=== PATIENT | male | born 1935 | race Caucasian/White ===

== ENCOUNTER → 2016-07-15 | Outpatient (CLI) | payer MEDICARE, OTHER ==
--- NOTE | 2016-07-15 16:43 | REP ---
MRI LUMBAR SPINE WITHOUT CONTRAST: HISTORY: Back and bilateral hip pain. COMPARISON: 11/22/2007. Decreased signal intensity on T2-weighted images is present in the lumbar intervertebral discs. The discs are decreased in height. These findings are consistent with disc degeneration. A diffuse disc bulge is present at the L1-2 level. There is minimal compression of the thecal sac. There is hypertrophy of the posterior articulating facets. The L2 nerves exit the neural foramina without compression. A diffuse disc bulge is present at the L2-3 level. There is hypertrophy of the ligamenta flava and posterior articulating facets. These findings produce mild central canal stenosis. The L2 nerves exit the neural foramina without compression. A diffuse disc bulge is present at the L3-4 level. There is hypertrophy of the ligamenta flava and posterior articulating facets. These findings produce mild central canal stenosis. The L3 nerves exit the neural foramina without compression. A diffuse disc bulge is present at the L4-5 level. There is hypertrophy of the ligamenta flava and posterior articulating facets. These findings produce minimal central canal stenosis. The L4 nerves exit the neural foramina without compression. A diffuse disc bulge is present at the L5-S1 level. This abuts the thecal sac and S1 nerves. There is hypertrophy of the posterior articulating facets. The L5 nerves exit the neural foramina without compression. The conus medullaris is normal in appearance terminating at the level of the T12-L1 intervertebral disc. There is an old compression fracture of the L1 vertebral body with minimal height loss. Increased signal intensity on T2-weighted images is present in the endplates of the L1 through L5 vertebral bodies. This represents degenerative change. IMPRESSION: 1. Diffuse disc bulge at the L1-2 level with minimal thecal sac compression. 2. Mild central canal stenosis at the L2-3 and L3-4 levels secondary to disc bulge, ligamentous and facet hypertrophy. The canal stenosis is a new finding. 3. Minimal central canal stenosis at the L4-5 level secondary to disc bulge, ligamentous and facet hypertrophy. This is a new finding. 4. Diffuse disc bulge at the L5-S1 level. This abuts the thecal sac and S1 nerves. There is no other significant change. Signed by Rasheed Ortiz MD 07/15/2016 04:47 P
== END ==
LOC: M RAD 12:14
PROVIDERS: ATTEND Pain Medicine Interventional Pain Medicine
DX: M47.816 Spondylosis without myelopathy or radiculopathy, lumbar region (principal); M51.36 Other intervertebral disc degeneration, lumbar region; M51.26 Other intervertebral disc displacement, lumbar region

== ENCOUNTER → 2016-08-26 | Outpatient (CLI) | payer MEDICARE, OTHER ==
[2016-08-26 18:25] LABS: ALBUMIN 3.4 GM/DL (3.2-5.2); ALBUMIN/GLOBULIN RATIO 1.21 (1.00-1.93); BILIRUBIN,TOTAL 0.6 MG/DL (0.2-1.0); CALCIUM LEVEL 8.7 MG/DL (8.8-10.2); CREATININE FOR GFR 1.27 MG/DL (0.70-1.30); GLOMERULAR FILTRATION RATE 58.1 (>35); POTASSIUM SERUM 4.2 MEQ/L (3.5-5.1); TOTAL PROTEIN 6.2 GM/DL (6.4-8.2)
== END ==
LOC: M SMT 13:12
PROVIDERS: ATTEND Physician Assistant
DX: I10 Essential (primary) hypertension (principal); E78.5 Hyperlipidemia, unspecified

== ENCOUNTER → 2016-11-24 | Outpatient (CLI) | payer MEDICARE, OTHER | LOC: M SMT 15:27 | PROVIDERS: ATTEND Urology | DX: N40.0 Benign prostatic hyperplasia without lower urinary tract symptoms (principal) ==

== ENCOUNTER 2017-03-18 09:24 | Emergency (ER) | payer MEDICARE, OTHER ==
[~2017-03-18] VITALS: Ht 175.3 cm; Wt 97.7 kg
[2017-03-18] MEDS ORDERED: TRIBTAB PO (10:00)
[2017-03-18] MEDS ORDERED: CILO100T PO (10:00)
[2017-03-18] MEDS ORDERED: CLAR10CA3 PO (10:00)
[2017-03-18] MEDS ORDERED: LIDO1PAD TOP (10:00)
[2017-03-18] MEDS ORDERED: ASPI81TA85 PO (10:00)
[2017-03-18] MEDS ORDERED: DICY10CA13 (10:00)
[2017-03-18] MEDS ORDERED: VITA2000 PO (10:00)
[2017-03-18] MEDS ORDERED: CRES5TAB (10:00)
[2017-03-18] MEDS ORDERED: NS 500 ML IV ONE (10:15)
[2017-03-18] MEDS ORDERED: ONDANSETRON 4MG/2ML VIAL (J2405) IV ONE (10:15)
[2017-03-18] MEDS ORDERED: MORPHINE 2 MG/ML 1ML SYRINGE IV PRN (10:15)
[2017-03-18] MEDS ORDERED: GASTROGRAFIN SOLUTION 30ML (Q9963) As Ordered ONE (10:43)
[2017-03-18 10:57] LABS: BASO % 0.2 % (0.0-1.0); EOS % 0.4 % (0.0-3.0); LARGE UNSTAINED CELL # 0.1 K/mm3 (0.0-0.4); LARGE UNSTAINED CELL % 1.9 % (0.0-4.0); LYMPH # 0.4 K/mm3 (1.5-4.5); LYMPH % 6.6 % (24.0-44.0); MEAN CORPUSCULAR HEMOGLOBIN 32.1 pg (27.0-33.0); MEAN CORPUSCULAR HGB CONC 34.4 g/dl (32.0-36.5); MEAN CORPUSCULAR VOLUME 93.3 fl (80.0-96.0); MONO # 0.3 K/mm3 (0.0-0.8); MONO % 5.1 % (0.0-5.0); NEUTROPHILS # 5.7 K/mm3 (1.8-7.7); NEUTROPHILS % 85.8 % (36.0-66.0); PLATELET COUNT, AUTOMATED 229 k/mm3 (150-450); RED CELL DISTRIBUTION WIDTH 13.4 % (11.5-14.5); WHITE BLOOD COUNT 6.6 K/mm3 (4.0-10.0)
[2017-03-18] MEDS ORDERED: GASTROGRAFIN SOLUTION 30ML PO ONE (11:00)
[2017-03-18 11:08] LABS: ALBUMIN 3.9 GM/DL (3.2-5.2); ALBUMIN/GLOBULIN RATIO 1.34 (1.00-1.93); ALKALINE PHOSPHATASE 70 U/L (45-117); ALT/SGPT 21 U/L (12-78); ANION GAP 10 MEQ/L (8-16); AST/SGOT 16 U/L (15-37); BILIRUBIN,DIRECT 0.2 MG/DL (0.0-0.2); BILIRUBIN,TOTAL 0.7 MG/DL (0.2-1.0); BLOOD UREA NITROGEN 24 MG/DL (7-18); CALCIUM LEVEL 8.6 MG/DL (8.8-10.2); CARBON DIOXIDE LEVEL 27 MEQ/L (21-32); CHLORIDE LEVEL 96 MEQ/L (98-107); CREATININE FOR GFR 1.14 MG/DL (0.70-1.30); GLOMERULAR FILTRATION RATE > 60.0 (>35); GLUCOSE, FASTING 109 MG/DL (83-110); POTASSIUM SERUM 3.9 MEQ/L (3.5-5.1); SODIUM LEVEL 133 MEQ/L (136-145); TOTAL PROTEIN 6.8 GM/DL (6.4-8.2)
[2017-03-18] MEDS ORDERED: GASTROGRAFIN SOLUTION 30ML (Q9963) PO ONE (11:30)
[2017-03-18] MEDS ORDERED: ISOVUE-370 76% 100ML VIAL (Q9967) As Ordered ONE (12:05)
--- NOTE | 2017-03-18 12:51 | REP ---
Clinical: Lower abdominal pain. Technique: Axial contrast enhanced images from the lung bases to the pubic symphysis using oral and 100 ml Isovue 370 intravenous contrast material with coronal and sagittal re-formations. Comparison: 09/13/2014. Findings: Lung bases are relatively clear. A 5 mm noncalcified nodule in the left lower lobe represent a relatively new finding when compared to 09/13/2014. Liver demonstrates stable small cysts. Spleen, pancreas, gallbladder, and bilateral adrenal glands are normal. Kidneys demonstrate stable simple and complex bilateral cysts. However, an enhancing lesion along the lateral aspect of the right mid pole measuring 17 mm is increased in size and enhancement and concerning for possible small mass lesion (images 55 - 59). The enteric system is without obstruction or acute inflammatory process. Colonic and sigmoid diverticulosis noted without acute diverticulitis. Normal terminal ileum identified in the right lower quadrant. Pelvis demonstrates normal bladder and stable prostate gland. Fat containing supraumbilical hernia measures approximately 4 cm. No ascites. No adenopathy. No free air. Atherosclerotic changes to the vasculature without aneurysm. Musculoskeletal structures demonstrate degenerative changes without focal osseous abnormality. Impression: 1. 5 mm noncalcified nodule in the left lower lobe may warrant 3-month follow-up chest CT for further investigation. 2. 1.7 cm right renal lesion may represent mass versus complex cyst and has increased from prior examination. Consider follow-up ultrasound and/or reevaluation by CT using renal mass protocol. 3. Sigmoid diverticulosis without acute diverticulitis. 4. 4 cm fat containing supraumbilical midline ventral hernia. 5. No further acute abdominopelvic pathology appreciated. No ascites. No adenopathy. No free air. Signed by Domingo Rodriguez MD 03/18/2017 12:42 P
[2017-03-18] MEDS ORDERED: ZOFR4TAB3 PO (13:10)
[2017-03-18 13:27] VITALS: BP 147/64
== END 2017-03-18 13:35 | disposition home or self-care (01) ==
LOC: M ED 09:24
DX: K57.30 Diverticulosis of large intestine without perforation or abscess without bleeding (principal); R91.1 Solitary pulmonary nodule; N28.9 Disorder of kidney and ureter, unspecified; I10 Essential (primary) hypertension; I73.9 Peripheral vascular disease, unspecified; M54.9 Dorsalgia, unspecified; Z85.46 Personal history of malignant neoplasm of prostate; Z87.891 Personal history of nicotine dependence; Z79.899 Other long term (current) drug therapy; Z79.82 Long term (current) use of aspirin
CPT/HCPCS: 74177; 80048; 80076; 81001; 83690; 85025; 96374; 99283; J2405; Q9963; Q9967

== ENCOUNTER 2017-04-01 11:03 | Inpatient (IN) | payer MEDICARE, OTHER ==
[~2017-04-01] VITALS: Ht 175.3 cm; Wt 95.1 kg
[2017-04-01] MEDS: ENOXAPARIN 40 MG/0.4 ML SYRINGE (J1650) SC SCH ×2 (09:00→23:03)
[2017-04-01] MEDS: hydroCHLOROthiazide 12.5 MG CAPSULE PO SCH (09:00)
[2017-04-01] MEDS: ASPIRIN 81 MG CHEW TABLET PO SCH (09:00)
[~2017-04-01 11:03] MED LIST: ASPI81TA85 PO; CILO100T PO; CLAR10CA3 PO; CRES5TAB; DICY10CA13; LIDO1PAD TOP; TRIBTAB PO; VITA2000 PO; ZOFR4TAB3 PO
--- NOTE | 2017-04-01 11:37 | REP ---
Chest two views HISTORY: Chest pain Comparison: 02/20/2010 The lungs are clear. The heart is normal in size. The pulmonary vasculature is normal in appearance. The bony structure is intact. IMPRESSION: No acute disease. Signed by Rasheed Ortiz MD 04/01/2017 11:29 A
[2017-04-01 11:45] LABS: BASO % 0.4 % (0.0-1.0); EOS # 0.1 10^3/uL (0.0-0.50); EOS % 0.8 % (0.0-3.0); IMMATURE GRANULOCYTE % 0.3 % (0-0); LYMPH % 7.1 % (24.0-44.0); MEAN CORPUSCULAR HEMOGLOBIN 31.6 pg (27.0-33.0); MEAN CORPUSCULAR HGB CONC 34.2 g/dl (32.0-36.5); MEAN CORPUSCULAR VOLUME 92.3 fl (80.0-96.0); MONO # 0.5 10^3/uL (0.0-0.8); MONO % 6.7 % (0.0-5.0); NEUTROPHILS # 6.7 10^3/uL (1.8-7.7); NEUTROPHILS % 84.7 % (36.0-66.0); PLATELET COUNT, AUTOMATED 203 10^3/uL (150-450); RED CELL DISTRIBUTION WIDTH 13.4 % (11.5-14.5); WHITE BLOOD COUNT 7.9 10^3/uL (4.0-10.0)
[2017-04-01 11:47] LABS: LYMPH # 0.6 10^3/uL (1.5-4.5)
[2017-04-01 11:59] LABS: INR 0.94
[2017-04-01 12:20] LABS: ALBUMIN 3.5 GM/DL (3.2-5.2); ALBUMIN/GLOBULIN RATIO 1.13 (1.00-1.93); ALKALINE PHOSPHATASE 52 U/L (45-117); ALT/SGPT 21 U/L (12-78); ANION GAP 9 MEQ/L (8-16); AST/SGOT 11 U/L (15-37); BILIRUBIN,DIRECT 0.2 MG/DL (0.0-0.2); BILIRUBIN,TOTAL 0.8 MG/DL (0.2-1.0); BLOOD UREA NITROGEN 17 MG/DL (7-18); CALCIUM LEVEL 8.8 MG/DL (8.8-10.2); CARBON DIOXIDE LEVEL 25 MEQ/L (21-32); CHLORIDE LEVEL 99 MEQ/L (98-107); CREATININE FOR GFR 0.98 MG/DL (0.70-1.30); FREE T4 1.16 NG/DL (0.76-1.46); GLOMERULAR FILTRATION RATE > 60.0 (>35); GLUCOSE, FASTING 116 MG/DL (83-110); MAGNESIUM LEVEL 2.2 MG/DL (1.8-2.4); POTASSIUM SERUM 3.6 MEQ/L (3.5-5.1); SODIUM LEVEL 133 MEQ/L (136-145); TOTAL PROTEIN 6.6 GM/DL (6.4-8.2)
[2017-04-01 13:10] LABS: ABG BASE EXCESS 3.3 (-2.0-2.0); ABG HCO3 26.8 MEQ/L (22.0-26.0); ABG PARTIAL PRESSURE CO2 37.3 mmHg (35.0-45.0); ABG STANDARD HCO3 27.4 MEQ/L (22.0-26.0); ABG pH (ARTERIAL) 7.475 UNITS (7.350-7.450)
[2017-04-01] MEDS ORDERED: CRES5TAB PO (13:21)
[2017-04-01] MEDS ORDERED: ZOFR4TAB3 PO (13:21)
[2017-04-01] MEDS ORDERED: PROBCAP14 PO (13:21)
[2017-04-01] MEDS ORDERED: ACETAMINOPHEN TAB 650MG DOSE (2X325MG) PO PRN (18:00)
--- NOTE | 2017-04-01 21:06 | HPE ---
DATE OF ADMISSION: 04/01/2017 ATTENDING PHYSICIAN: Dr. Yariel Hoff CHIEF COMPLAINT: Malaise and irregular pulse. HISTORY: This 82-year-old (for the second time) father of one, retired , resident of [place] is followed by [facility] for multiple medical problems including hypertension, hypercholesterolemia, irritable bowel syndrome and chronic sinusitis. Customarily does not feel particularly restricted, will walk on his treadmill at 2 miles per hour for 15 minutes and climbs stairs on a regular basis, ultimately limited by back pain. For the past several weeks has been experiencing a malaise or ease of fatigue and has been noted by his to have an irregular pulse. Recorded rates as low as 46 beats per minute by palpation. He had been to [facility] emergency room several weeks ago with some abdominal complaints. Cardinal cardiac symptoms: Specifically denies any history of chest, jaw, or arm discomforts. He is unaware of an abnormal EKG. Did undergo a treadmill testing some 8 years ago prior to vascular surgery. This apparently showed a favorable coronary prognosis at that time. Prior longstanding heavy smoking history began at age 22 and stopped 8 years ago; smoked up to one pack per day. Currently denies any cough. No history of hemoptysis or pneumonia. Seasonal allergies treated with Flonase and loratadine. Denies shortness of breath or orthopnea. Unaware of prior rheumatic fever but claims to have heart murmur most of his life with prior echocardiographic study showing no serious valvular abnormality. Treated hypertension for the past 20 years; on his current therapy claims blood pressure usually runs between 120-130 over 60-70. Unaware of cardiomegaly. Has had a weight problem (weighed 170 pounds at age 19; max weight 240 pounds 20 years ago. Current weight has been stable the past year at 215 pounds.) Palpitations: Denies any knowledge of a pulse irregularity prior to 2 or 3 weeks ago. No family history of premature sudden cardiac or congenital deafness. He drinks two cups of caffeinated coffee daily, but avoids other sources of caffeine. Drinks alcohol infrequently perhaps once a month. Only recently determined to have a marginally elevated TSH. Not on hormone replacement at this time. Uses Flonase and loratadine but does not use [id number] decongestants, energizers or dietary aids. Near-syncope / syncope: Has a history of reduced auditory acuity and tinnitus, but no actual vertigo, dizziness, fall or loss of consciousness. Embolic phenomenon: Has reduced visual acuity but no lateralizing neurological deficit, flank pain, hematuria or blue toe syndrome. Claudication / peripheral venous disease: Apparently had a problem with claudication and underwent right leg bypass surgery with Dr. Rodríguez 8 years ago which apparently was not successful. Has been on Pletal twice a day with low-dose aspirin and statin therapy since. Claims to be able walk on his treadmill without calf discomfort but on concrete buck top after half a block. Unaware of varicose veins, prior phlebitis or ankle swelling. Coronary risk factors: Male gender. Age. Hypertension. Hypercholesterolemia. Prior smoker as mentioned above. Borderline elevated blood sugar. No family history of premature coronary disease. REVIEW OF SYSTEMS: Denies problem with headaches, fever or chills. Wears corrective lenses for reading. Reduced auditory acuity and tinnitus, but does not use a hearing aid. Has own teeth. Denies any problem with dyspnea, heartburn or reflux. Will experiencing intermittent low bloating and abdominal spasms, previously treated with Bentyl with good effect but this was discontinued 2 weeks ago because of malaise and nausea. Denies history of GI bleeding or melena. Prior cancer of the prostate treated with radiation therapy; currently has nocturia 304 times nightly. No hematuria. Previously evaluated by Dr. Dias for mild renal insufficiency. Followed by Dr. Gregorio for his prostate problems. Longstanding lumbar disk disease and chronic low back pain. All other systems review is negative. KNOWN PAST CARDIAC OTHER PAST MEDICAL HISTORY: Chronic low back pain with radiculopathy dating back to 2004 with spinal stenosis 2007. Prostate cancer dating back to 2015 post radiation therapy. Remote pilonidal cystectomy. Irritable bowl bowel syndrome dating back to 1997. Prior lumbar epidural injections for low back pain. Right femoral popliteal bypass graft with [facility] September 18, 2000 - unsuccessful. MEDICATIONS: At home the patient takes Tribenzor (combination olmesartan, amlodipine, and hydrochlorothiazide) 40/5/25 one tablet daily, Crestor 5 mg at bedtime, aspirin 81 mg daily, loratadine 10 mg daily, Cilostazol 100 mg twice a day, vitamin D 3-1000 units daily, Lidoderm patch 5% topically to low back daily as needed and Zofran 4 mg tablets one tablet every 4 hours as needed nausea with probiotic two capsules at bedtime. ALLERGIES: None known. PHYSICAL EXAMINATION: Constitutional: Overweight elderly male, somewhat [id number]. Only comfortably with the head of bed elevated 30 degrees. VITAL SIGNS: Heart rate 75 bpm and regular with frequent irregularities. Blood pressure 165/80 supine, 188/64 for sitting with legs dependent (did not take his blood pressure medication today). Respiratory is 16, O2 saturation 96% on room air. Afebrile. Weight 216 pounds, height 69 inches and BMI 32. EYES: Normal conjunctivae and lids. No xanthelasma. ENT/Mouth: Dentition in good repair. Normal oral moisture. No central cyanosis. NECK: Trachea midline. Thyroid not enlarged. Neck veins appear to be at the level of the sternal angle with intermittent winters A-waves. RESPIRATORY: Slightly increased anteroposterior chest diameter with adequate chest expansion. Good air entry over both lung chapin with no inspiratory rales and only slight prolongation of expiration. No audible wheeze. CARDIOVASCULAR: Apical impulse at the mid intercostal costal space. S1-S2 were variable. S2 splitting could be audible without definite increase in pulmonary component of S2. Variable S4. Has a soft variable systolic ejection murmur along left sternal border radiating to the right base. Not well to the neck. No diastolic murmur or rub. Normal carotid upstrokes but variable volume related to his arrhythmia. No audible bruits. Upper extremity pulses were symmetrical and normal. Femoral pulses were symmetrical and normal pedal pulses were symmetrically decreased. Few dilated superficial venules, but no obvious varicose veins. Has pitting edema two thirds up both lower legs. Abdominal aorta was not palpable. No abdominal bruits. EXTREMITIES: No clubbing peripheral cyanosis or splinter hemorrhages. GI: Overweight, soft, nontender abdomen with no hepatosplenomegaly. Liver span measuring 8 cm in right mid line. Normal bowel sounds. No obvious joint deformities. Normal muscular strength and tone. No abnormal movements. NEURO/PSYCHE: Bright, alert and oriented, gave lucid history. Eye, facial, extremity movements were symmetrical and normal. SKIN: Slight degenerative change skin of both lower legs but no rashes, ecchymotic lesions pallor or icterus. LABORATORY DATA: Portable upright chest x-ray reviewed independently from earlier today that was taking somewhat lordotically so estimation of heart size was somewhat inaccurate. Has an unfolded thoracic aorta with some calcification aortic arch. Pulmonary vasculature did appear to be accentuated with a slightly increased interstitial markings. No apparent pleural effusion. Bony structures appear to be normal. EKG: Tracing taken earlier today shows underlying sinus rhythm with frequent isolated unifocal PVCs occurring in the bigeminal pattern. Left atrial conduction disturbance with KS interval upper limits of normal. QRS complexes slightly low in voltage but normal precordial R-wave progression and no Q-waves suggestive of prior infarction. Has lateral ST-segment depressions, did have from prior EKGs, but these are not able to be reviewed from the computer. BLOOD WORK: Hemoglobin 12.8 with normal white blood cell count and platelet count. Normal white blood cell indices. Normal PT / INR. Arterial blood gas performed today on room air showed a pH of 7.48, pCO2 of 37, pO2 of 88. Electrolytes were normal with BUN 17, creatinine 0.98, random glucose 116. Serum calcium 8.8. Serum albumin 3.5. Liver function studies were normal. Troponin I level was negative. BNP level was elevated at 672. Ultra sensitive TSH was only marginally increased at 3.8. Last lipid profile August 2016 showed total cholesterol 158, triglycerides 86, LDL of only 64 and HDL 75 with total ratio of 2.1. PSA was 0.04 Nov 2016. IMPRESSION/PLAN: 1. Heart failure (unspecified): Curiously the patient denies dyspnea, orthopnea, but is experiencing vague malaise that may correlate with his radiographic and laboratory studies in keeping with congestive heart failure. An abdominal CT scan from March 18, 2016 was reviewed independently and appears to show a mildly dilated left ventricular cavity of 5.6 cm with moderate left atrial enlargement measuring a least 4.6 cm. Right ventricle appeared upper limits of normal in size. Right atrium appeared to be slightly dilated inferior vena cava measured 2.0 cm within normal limits. There is marginal calcification of the aortic valve and the descending thoracic aorta. Some mitral annular thickening and only marginal coronary calcification. No pleural effusions. Likely etiology is his longstanding hypertension and that weight problem. We have requested an echocardiogram / Doppler study; however this is pending. He will be admitted to a telemetry unit for close observation and will be kept on a modest salt and fluid intake restriction. He will continue on his angiotensin receptor kaushik therapy and low-dose thiazide but spirolactone Metro 0.5 mg will be added to his regimen. 2. PVCs: The observed low grade ventricular ectopy would be considered well outside normal limits. This is likely related to his underlying structural heart disease as alluded to above. His echocardiogram / Doppler study should allow us to more objectively define left ventricular systolic and diastolic function and further estimate central risk of sudden with the observed arrhythmia. There did not appear to be any clear-cut reversible features though weight loss would be expected to reduce his risk of rhythm disturbance and reduced cardiac work load. He will be monitored on telemetry overnight and assess for any more complex forms. Pending his echocardiographic findings with his congestive heart failure possibly triggered by a "tachycardia mediated cardiomyopathy," we may consider initiation of amiodarone antiarrhythmic therapy as discussed with the patient. We will have to be careful with his thyroid function as his TSH is slightly elevated already. We have added low-dose spironolactone to his current antihypertensive regimen as this agent has been shown to reduce rhythm disturbances to prevent further left ventricular hypertrophy and program cell deaths by blocking an aldosterone. 3. Abnormal EKG: Findings in keeping with his smoking history but also hypertension with left atrial conduction disturbance. Has a borderline first-degree AV block that with somewhat stear us away from the introduction of beta kaushik sections carvedilol at this time. Lateral ST / T-wave abnormality is likely strain pattern with his hypertension and obesity. No clear sign of prior infarction, but it would be prudent to reevaluate his coronary prognosis as an outpatient - we will consider performing either a treadmill versus pharmacological stress heart scan. For the time being he will remain on protective angiotensin receptor kaushik, Crestor and low-dose aspirin. 4. Hypertensive heart disease (benign with heart failure): I suspect this condition may well be responsible for his structural and functional cardiac abnormalities as well as his arrhythmia. Current blood pressure would be considered suboptimally controlled but he did not take his customary antihypertensive therapy today. Home blood pressures seem to be adequately controlled. Our intent at this time would be to continue him on combination of olmesartan, amlodipine, and hydrochlorothiazide with the addition of spironolactone as mentioned above. Followup chemistry will be obtained morning. Followup urinalysis and chest x-ray will also be obtained. 5. Localized edema: Bilateral pitting edema is not associated with the neck vein elevation in keeping with peripheral venous insufficiency, possibly related to his obesity. It Is likely his amlodipine is also contributing. While he is in hospital we will keep him on low-dose [id number] heparin prophylactically. 6. Peripheral vascular disease / claudication: His Cilostazol has done quite well given his need for prior femoral-popliteal surgery 16 years ago! However, this agent is contraindicated with congestive heart failure and rhythm disturbances and will not be continued. He will remain on his combination angiotensin receptor kaushik, statin and aspirin therapies. 7. Obesity (BMI 32): In light of his weight problem and ventricular ectopy, while he is in hospital we will obtain a nocturnal oximetry study as a screen for obstructive sleep apnea. I reviewed these impressions and my plan with the patient and his who appeared to understand and agree. At this point the patient does wish to have aggressive measures performed should he have a potentially full cardiac arrhythmia or respiratory distress. Further investigation and treatment will depend on his response to these initial measures.
[2017-04-01] MEDS: amLODIPine 5 MG TAB PO SCH (22:10)
[2017-04-01] MEDS: SPIRONOLACTONE 12.5MG PER 1/2 TABLET PO SCH (22:11)
[2017-04-01 22:43] VITALS: BP 156/100
[2017-04-01] MEDS ORDERED: SLF 3 ML SYR IV PRN (22:45)
[2017-04-01] MEDS: OLMESARTAN MEDOXOMIL 20 MG TAB (BENICAR) PO SCH (23:03)
[2017-04-01] MEDS: ROSUVASTATIN 10 MG TAB (CRESTOR) PO SCH (23:04)
[2017-04-01 23:59] VITALS: BP 175/68
[2017-04-02] VITALS (8 sets, daily range): BP systolic 118–146; BP diastolic 50–83
[2017-04-02] MEDS: ONDANSETRON 4 MG TAB (S0181) PO PRN (00:49)
[2017-04-02] MEDS: SLF 3 ML SYR IV SCH ×3 (06:00→21:35)
[2017-04-02 06:44] LABS: ALBUMIN 3.2 GM/DL (3.2-5.2); ANION GAP 7 MEQ/L (8-16); BLOOD UREA NITROGEN 18 MG/DL (7-18); CALCIUM LEVEL 8.1 MG/DL (8.8-10.2); CARBON DIOXIDE LEVEL 30 MEQ/L (21-32); CHLORIDE LEVEL 100 MEQ/L (98-107); CHOLESTEROL LEVEL 125 MG/DL (<200); CREATININE FOR GFR 1.07 MG/DL (0.70-1.30); GLOMERULAR FILTRATION RATE > 60.0 (>35); GLUCOSE, FASTING 100 MG/DL (83-110); PHOSPHORUS LEVEL 3.2 MG/DL (2.5-4.9); POTASSIUM SERUM 3.8 MEQ/L (3.5-5.1); SODIUM LEVEL 137 MEQ/L (136-145); TRIGLYCERIDES LEVEL 70 MG/DL (<150)
--- NOTE | 2017-04-02 08:39 | REP ---
PA and lateral chest: Comparison is the portable chest of 04/01/2017. The lung chapin are clear. Cardiac size is normal. The natalie, mediastinum, bony thorax are unremarkable for patient age. There are no pleural effusions. Impression: Negative PA and lateral chest. Signed by Delfino Pendleton MD 04/02/2017 08:30 A
[2017-04-02] MEDS: amLODIPine 5 MG TAB PO SCH ×2 (10:00→21:35)
[2017-04-02] MEDS: SPIRONOLACTONE 12.5MG PER 1/2 TABLET PO SCH (10:09)
[2017-04-02] MEDS: ASPIRIN 81 MG CHEW TABLET PO SCH (10:10)
[2017-04-02] MEDS: hydroCHLOROthiazide 12.5 MG CAPSULE PO SCH (10:10)
[2017-04-02] MEDS: OLMESARTAN MEDOXOMIL 20 MG TAB (BENICAR) PO SCH ×2 (10:10→21:34)
[2017-04-02] MEDS: ENOXAPARIN 40 MG/0.4 ML SYRINGE (J1650) SC SCH (10:13)
[2017-04-02] MEDS ORDERED: SPIR25TA2 PO (20:05)
--- NOTE | 2017-04-02 20:37 | ECGEPIP ---
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
--- NOTE | 2017-04-02 21:03 | DSES ---
DATE OF ADMISSION: 04/01/2017 DATE OF DISCHARGE: DISCHARGE SUMMARY CLINICAL SUMMARY: 82-year-old gentleman admitted yesterday through the emergency room, having presented with malaise and found to have frequent isolated PVCs with radiographic and chemical evidence of congestive heart failure. Please see my admission history and physical for further details. INVESTIGATIONS AND COURSE IN HOSPITAL: He was admitted to a telemetry unit for monitoring of his rhythm disturbance and to rule out any more complex arrhythmia. 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 However, he had evidence to suggest hypertensive heart disease and he was on cilostazol, which has been shown to be a problem with heart failure and possibly causing rhythm problems. This agent was discontinued. He was placed on a modest salt and fluid intake restriction and restricted activity temporarily. Interestingly monitored overnight, he was remained free of any complex rhythm disturbance but continued to have frequent isolated PVCs occurring off any bigeminal pattern. He had an element of sinus node dysfunction with a slightly prolonged sinus pause post PVC. Followup PA and left lateral chest x-ray: With the simple measures, continuing his combination olmesartan, amlodipine, and hydrochlorothiazide with the addition of low-dose spironolactone, signs of congestion resolved. He remained free of chest discomfort with serial troponin I levels negative. As mentioned his pro BNP level was elevated at 672 (normal less than 450). His blood pressure was adequately controlled with measurements between 118 and 146 over 50-69. Oxygen saturation on room air remained excellent at 96-98%. Followup chemistry again confirmed electrolyte balance with normal renal function. Fasting lipid profile showed total cholesterol 125, HDL 70, LDL 41, total / ACL ratio 1.8. Ultrasensitive TSH was slightly elevated at 3.8 (normal less than 3.7). The patient was given CHF education and we had planned on obtaining an echocardiogram / Doppler study while he was in hospital but because of a shortage of staff this was not accomplished. The patient was ambulating on the floor without any problems so we elected to proceed with further investigation as an outpatient. DISCHARGE FINAL DIAGNOSES: 1. Heart failure (unspecified): Believed to be related to underlying hypertensive heart disease, possibly aggravated by his cilostazol and frequent PVCs. He has been instructed to follow a modest salt and fluid intake restriction. He will remain on combination angiotensin receptor kaushik, low-dose HCTZ and spironolactone. We will make arrangements for an echocardiogram / Doppler study through my office in the very near future. 2. PVCs: Extremely frequent low grade ventricular ectopic activity. No complex forms. Likely related to his age and structural heart disease, i.e., hypertensive heart disease. His cilostazol may well be contributing. Has been started on low-dose spironolactone which has been shown to reduce ventricular ectopy. I am somewhat reluctant to initiate antiarrhythmic therapy in light of his post PVC prolonged sinus node recovery time and fear of provoking a symptomatic bradycardia. Once he is off cilostazol for 72 hours, we intend to obtain an ambulatory 24-hour EKG recording to reassess his ectopic activity. 3. Abnormal EKG: Has a left atrial conduction disturbance and lateral strain pattern believed to be related to his weight problem and hypertension. In light of his age and multiple coronary risk factors as well as this EKG, a pharmacological stress heart scan will be planned in the near future. For the time being, he remains on combination angiotensin receptor kaushik, olmesartan, amlodipine, Crestor and low-dose aspirin therapy. 4. AV block (first-degree): Another reason for trying to avoid negative chronotropic for antiarrhythmic therapy. During his 24 hours of EKG monitoring here, has been free of any higher grade AV block. 5. Hypertensive heart disease (benign with heart failure): As mentioned, signs of congestion seem to have resolved with dietary measures, bedrest and a subtle adjustment of his antihypertensive regimen. Current blood pressure would be considered adequately controlled on his combination pill (olmesartan 40 mg, amlodipine 5 mg, hydrochlorothiazide 25 mg) one tablet daily. We have added spirolactone 12.5 mg daily as mentioned above. 6. Localized edema: This appears to have resolved with bedrest as well. Is believed his calcium channel kaushik therapy is likely contributing to this. 7. Peripheral vascular disease / claudication: This apparently has responded to cilostazol in the past and he may begin having worsening effort related calf discomfort. For the time being he will remain on protective angiotensin receptor kaushik, statin and aspirin therapy. 8. Obesity (BMI 32): We have discussed the negative impact of his weight problem on his cardiovascular system. It may very well also be contributing to his ventricular ectopy. We attempted to arrange a pulse oximetry while he was in hospital. There is no current report available. We will followup on this. My office will be contacting the floor tomorrow morning with followup appointments for echocardiogram / Doppler study, 24-hour Holter monitor, pharmacological stress heart scan and a clinic visit post testing. We are hoping to accomplish this before his tentatively scheduled colonoscopy 04/15/2017.
[2017-04-02] MEDS: ROSUVASTATIN 10 MG TAB (CRESTOR) PO SCH (21:35)
[2017-04-03 04:00] VITALS: BP 121/78
[2017-04-03] MEDS: SLF 3 ML SYR IV SCH ×2 (05:44→13:05)
--- NOTE | 2017-04-03 07:00 | PULFX ---
DATE OF PROCEDURE: 04/01/2017 ORDERED BY: Dr. Hoff Nocturnal recording oximetry was performed on room air. Baseline saturation 96%. Lowest oxygen saturation reliably recorded 94%. There was no significant pattern noted in the record. IMPRESSION: Normal nocturnal recording oximetry on room air.
[2017-04-03] MEDS: ASPIRIN 81 MG CHEW TABLET PO SCH (08:35)
[2017-04-03] MEDS: SPIRONOLACTONE 12.5MG PER 1/2 TABLET PO SCH (08:35)
[2017-04-03] MEDS: ENOXAPARIN 40 MG/0.4 ML SYRINGE (J1650) SC SCH (08:35)
[2017-04-03] MEDS: ONDANSETRON 4 MG TAB (S0181) PO PRN (08:35)
[2017-04-03] MEDS: hydroCHLOROthiazide 12.5 MG CAPSULE PO SCH (08:35)
[2017-04-03] MEDS: OLMESARTAN MEDOXOMIL 20 MG TAB (BENICAR) PO SCH (08:35)
[2017-04-03 09:46] VITALS: BP 117/62
[2017-04-03] MEDS: amLODIPine 5 MG TAB PO SCH (09:46)
[2017-04-03 09:56] VITALS: BP 135/71
[2017-04-03 12:00] VITALS: BP 128/76
--- NOTE | 2017-04-03 20:52 | ECHO ---
DATE OF PROCEDURE: 04/03/2017 REFERRING PHYSICIAN: Yariel Hoff MD INDICATION: Heart failure, unspecified. HEIGHT: 175 cm WEIGHT: 98.2 kg REFERRING PHYSICIAN: INDICATION: HEIGHT: 152 cm WEIGHT: 110 kg 2D MEASUREMENTS: Aortic root: 3.4 cm Left atrium: 3.9 cm Ventricular septum: 1.03 cm Posterior wall: 1.03 cm Left ventricle diastole: 5.1 cm LVOT: 2.3 cm IVC: 2.0 cm DOPPLER MEASUREMENTS: Aortic valve velocity: 164 cm/s LVOT velocity: 77.5 cm/s LVOT VTI: 19.6 cm Very mild mitral regurgitation. Mitral E velocity: 98.2 cm/s Mitral A velocity: 111 cm/s Mitral deceleration time: 155 ms Very mild tricuspid regurgitation. Pulmonary artery systolic pressure 44 mmHg by pulmonary acceleration time method. DESCRIPTION: Rhythm was sinus with frequent premature ventricular contractions (PVCs) including some ventricular bigeminy. This was a moderately technically difficult echocardiogram. No pericardial effusion. This is a 2D, M-mode, color flow Doppler and pulse wave Doppler examination that included mitral annular tissue Doppler. CONCLUSIONS: 1. Normal left ventricle internal dimensions and wall thickness. During sinus beats, left ventricle wall motion and wall thickening appeared normal with normal LV systolic function (LVEF 60% by visual estimate). With PVCs there is paradoxical septal motion and mild-moderate reduction overall LV systolic function (LVEF 45% with PVC beats by visual estimate. 2. Grade 1 LV diastolic dysfunction. 3. Moderate aortic valve sclerosis of a three-cuspid aortic valve. No aortic stenosis or regurgitation. 4. Moderate mitral annular calcification. Very mild mitral regurgitation. No mitral stenosis. 5. Suggestive of moderate elevation of pulmonary artery systolic pressure.
--- NOTE | 2017-04-03 23:05 | ECGEPIP ---
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
== END 2017-04-03 16:04 | disposition home or self-care (01) | DRG 316 ==
LOC: M ED 11:03 → M ED INP 18:00 → M PCU 22:30
PROVIDERS: ADMIT Internal Medicine Cardiovascular Disease; ATTEND Internal Medicine Cardiovascular Disease
DX: I42.9 Cardiomyopathy, unspecified (principal); I11.0 Hypertensive heart disease with heart failure; I49.3 Ventricular premature depolarization; I50.9 Heart failure, unspecified; I44.0 Atrioventricular block, first degree; I70.213 Atherosclerosis of native arteries of extremities with intermittent claudication, bilateral legs; E66.9 Obesity, unspecified; Z68.32 Body mass index [BMI] 32.0-32.9, adult; E78.00 Pure hypercholesterolemia, unspecified; Z87.891 Personal history of nicotine dependence; Z85.46 Personal history of malignant neoplasm of prostate; K58.9 Irritable bowel syndrome, unspecified

== ENCOUNTER 2019-01-19 22:40 | Inpatient (IN) | payer MEDICARE, OTHER ==
[~2019-01-19] VITALS: Ht 175.3 cm; Wt 97.7 kg
[~2019-01-19 22:40] MED LIST changes: +CRES5TAB PO; +PROBCAP14 PO; +SPIR-10 PO; +ZOFR4TAB14 PO; -ZOFR4TAB3 PO
[2019-01-19] MEDS ORDERED: MORPHINE 4 MG/ML 1ML VIAL/SYRINGE (J2270) IV ONE (23:15)
[2019-01-19] MEDS ORDERED: DERMABOND TOPICAL SKIN ADHESIVE TOP ONE (23:15)
[2019-01-19] MEDS ORDERED: ADACEL/BOOSTRIX VACCINE (DIPHTH/PERTUSS/ACELL/TETANUS)0.5ML SYR (90715) IM ONE (23:15)
[2019-01-20 00:16] LABS: BASO % 0.2 % (0.0-1.0); EOS # 0.1 10^3/uL (0.0-0.50); EOS % 0.8 % (0.0-3.0); HEMATOCRIT 40.8 % (42.0-52.0); HEMOGLOBIN 13.4 g/dl (13.5-17.5); LYMPH # 0.8 10^3/uL (1.5-4.5); LYMPH % 4.8 % (24.0-44.0); MEAN CORPUSCULAR HEMOGLOBIN 31.7 pg (27.0-33.0); MEAN CORPUSCULAR HGB CONC 32.8 g/dl (32.0-36.5); MEAN CORPUSCULAR VOLUME 96.5 fl (80.0-96.0); MONO # 0.9 10^3/uL (0.0-0.8); MONO % 5.4 % (0.0-5.0); NEUTROPHILS # 14.3 10^3/uL (1.8-7.7); NEUTROPHILS % 88.1 % (36.0-66.0); PLATELET COUNT, AUTOMATED 226 10^3/uL (150-450); RED BLOOD COUNT 4.23 10^6/uL (4.30-6.10); WHITE BLOOD COUNT 16.2 10^3/uL (4.0-10.0)
[2019-01-20] MEDS ORDERED: MORPHINE 4 MG/ML 1ML VIAL/SYRINGE (J2270) IV ONE ×2 (00:45→05:15)
[2019-01-20 00:51] LABS: CALCIUM LEVEL 8.7 MG/DL (8.8-10.2); CREATININE FOR GFR 1.56 MG/DL (0.70-1.30); GLOMERULAR FILTRATION RATE 45.5 (>35); POTASSIUM SERUM 4.5 MEQ/L (3.5-5.1)
--- NOTE | 2019-01-20 02:38 | REPVR ---
EXAM: CT Chest Without Contrast EXAM DATE/TIME: 01/20/2019 12:44 AM CLINICAL HISTORY: 84 years old, male; Injury or trauma; Fall; Initial encounter; Blunt trauma (contusions or hematomas) TECHNIQUE: Imaging protocol: Axial computed tomography images of the chest without intravenous contrast. Coronal and sagittal reformatted images were created and reviewed. Radiation optimization: All CT scans at this facility use at least one of these dose optimization techniques: automated exposure control; mA and/or kV adjustment per patient size (includes targeted exams where dose is matched to clinical indication); or iterative reconstruction. COMPARISON: CR Chest, 2 view PA, Lat 04/02/2017 8:12 AM Study limitations: Evaluation of mediastinal and hilar structures and vasculature, including injury is compromised without contrast. FINDINGS: HEART AND VASCULATURE: There is mild cardiac enlargement. There is some calcification at the aortic and mitral valves. There is extensive calcified coronary arterial atherosclerosis. No pericardial effusion. The thoracic aorta is non-aneurysmal. There is thoracic aortic atherosclerosis. The main pulmonary trunk is not overtly dilated. MEDIASTINUM: No mediastinal gas. The visualized thyroid gland is within normal limits. No mediastinal hematoma is seen. Small amount of fluid noted within the pericardial recesses. Small mediastinal lymph nodes are seen. No periesophageal gas or fluid. LUNGS: There is a small right-sided pneumothorax with gas noted anteriorly on this supine imaged CT. Pneumothorax is approximately 10-15% right hemithoracic volume. No pneumothorax on the left. Trace amount of pleural fluid is seen on the right. Hazy groundglass and reticular opacities are noted at the lung bases, right greater than left, likely secondary to atelectasis. No evidence of pulmonary parenchymal contusion, laceration or hemorrhage seen. No suspicious pulmonary parenchymal mass. No bronchiectasis or peribronchial thickening. UPPER ABDOMEN: Please refer to same day CT abdomen report for complete findings. MSK AND BODY WALL: There is soft tissue gas within the musculature of the right chest wall extending above and below the level of imaging. No chest wall hematoma is seen. Slightly displaced right posterior 12th rib fracture noted. Comminuted segmental fractures involving the posterior right 11th rib noted. There is an additional posterolateral slightly displaced fracture of the right 11th rib. Nondisplaced posterior right 10th rib fracture noted. Slightly displaced right posterolateral 10th rib fractures seen. Minimally displaced right posterolateral ninth rib fracture seen. Minimally displaced right posterior ninth rib fracture also noted. No additional acute osseous injuries within the thorax. Degenerative changes of the spine and bony thorax noted. IMPRESSION: Multiple acute right-sided rib fractures. Small right-sided pneumothorax. Small right pleural effusion. Bibasal and dependent atelectasis, right greater than left. Other non-emergent findings and limitations discussed above. Electronically signed by: Diego Molina On 01/20/2019 02:37:58 AM
--- NOTE | 2019-01-20 02:51 | REPVR ---
EXAM: CT Abdomen and Pelvis Without Contrast EXAM DATE/TIME: 01/20/2019 12:44 AM CLINICAL HISTORY: 84 years old, male; Pain; Other: Trauma TECHNIQUE: Imaging protocol: Axial computed tomography images of the abdomen and pelvis without contrast. Coronal and sagittal reformatted images were created and reviewed. Radiation optimization: All CT scans at this facility use at least one of these dose optimization techniques: automated exposure control; mA and/or kV adjustment per patient size (includes targeted exams where dose is matched to clinical indication); or iterative reconstruction. COMPARISON: CT ABD/PEL W/IV ORAL CONTRAS 03/18/2017 12:15 PM Study limitations: Evaluation for post traumatic injury, mass, inflammatory change, including bowel wall/fold thickening, viscera, and vasculature, is suboptimal without contrast. Image quality is slightly degraded by positioning of the patient's arms along side of body wall, resulting in streak artifacts. FINDINGS: LUNG BASES: Please refer to same day CT chest report for complete findings. VASCULAR: No abdominal aortic aneurysm or retroperitoneal hematoma. There is aorto iliac, femoral and visceral arterial calcified atherosclerosis. There may be a right lower extremity bypass graft, incompletely assessed. PERITONEAL : No free air or free fluid. GI: No hiatal hernia. The stomach is mildly distended with ingested material, fluid and gas. The stomach is not sufficiently distended to evaluate wall thickening. No perigastric or periduodenal inflammatory stranding. Nonspecific fluid-filled loops of small bowel. No asymmetric small bowel dilation to suggest obstruction. There is no focal mesenteric inflammatory stranding. Small nonspecific mesenteric lymph nodes. No mesenteric or omental soft tissue hematoma seen. Scattered fecal material and gas within portions of the colon and rectum. Portions of the colon are distended up to 7 cm in diameter. This could be correlated for ileus or mild constipation. The sigmoid colon is partially rotated upon itself, along with the sigmoid mesentery but an obstructing volvulus is not seen. There is extensive diverticulosis but no evidence of acute diverticulitis. The appendix does not appear inflamed. HEPATOBILIARY, PANCREAS, SPLEEN: The liver is not enlarged. Evaluation of the hepatic parenchyma is limited by artifact and lack of contrast. No perihepatic hemorrhage is seen. 10 mm hypodense lesion noted inferiorly within the right hepatic lobe, difficult to further characterize by this exam but may represent a cyst as seen previously. No calcified gallstones. No pancreatic inflammation. Spleen not enlarged. No perisplenic hemorrhage. ADRENALS, KIDNEYS, BLADDER, RETROPERITONEAL: Adrenals within normal limits. No hydronephrosis. Mild nonspecific perinephric stranding. No perinephric hematoma. Bilateral renal lesions are noted. The lesions on the left are similar in size to the prior exam. A partially exophytic lesion posteriorly at the left mid pole is hyperdense and may represent a complex cyst. A 2.1 cm exophytic hyperdense right renal lesion noted at the midpole is slightly larger than on the prior exam. This may represent enlargement of a complex cyst. A 3.4 cm posterior exophytic renal lesion noted at the right midpole is also larger than on the prior exam. Consider nonemergent ultrasound for further assessment. No perivesical stranding or fluid. Mildly prominent prostate impressing into the base of the bladder. Clinical correlation and followup is advised. Prostate metallic artifacts are noted which may represent radiation, similar to the prior exam. MUSCULOSKELETAL: 6 cm non-inflamed midline supraumbilical fat containing hernia is noted. Small fat-containing inguinal hernias are seen. Degenerative changes of the spine and within the pelvis. There is soft tissue gas along the postero-lateral right upper abdominal wall. No acute abdominal or pelvic fracture or malalignment is seen. IMPRESSION: Soft tissue gas noted along the upper right postero-lateral thoracoabdominal body wall. No noncontrast evidence of acute injury within the abdomen/pelvis otherwise. No free air, free fluid or focal mesenteric inflammation. Nonspecific gastrointestinal findings as discussed above. Indeterminate right renal lesions, slightly larger than on the prior study. Consider nonemergent ultrasound for reevaluation. Other incidental and nonemergent findings and study limitations discussed above. Electronically signed by: Diego Molina On 01/20/2019 02:51:29 AM
[2019-01-20] MEDS ORDERED: TRIBTAB PO (03:34)
[2019-01-20] MEDS ORDERED: SPIR-10 PO (03:34)
[2019-01-20] MEDS ORDERED: ASPI-161 PO (03:48)
[2019-01-20] MEDS ORDERED: LORA-674 PO (03:48)
[2019-01-20] MEDS ORDERED: BACITAB PO (03:48)
[2019-01-20] MEDS ORDERED: NS 1,000 ML IV SCH (04:14)
[2019-01-20 04:50] VITALS: BP 110/70
--- NOTE | 2019-01-20 04:59 | HPEPDOC ---
General Date of Admission Jan 20, 2019 at 03:52 Date of Service: Jan 20, 2019 Attending Physician: CARLOS CLARKE MD Chief Complaint The patient is a 84-year-old male admitted with a reason for visit of Right Pneumothorax, Multiple Rib Fx's. History of Present Illness Patient is an 84-year-old male, presenting to the emergency room status post fall, which is mechanical at home. Patient states he was going up stairs in his house with his lights out after completing laundry. He had a laundry basket with him. He missed his footing and fell down a flight of stairs, landing on his right side. There was no loss of consciousness or chest pain prior to and after fall. On arrival to the emergency room. Initial assessment revealed significant pain to right posterior area and right elbow laceration which was repaired in the emergency room. Laboratory data was abnormal for white blood count of 16.2, hemoglobin 13.4. B UN was 41, creatinine 1.56, GFR 45.5. CT chest showed slight ly displaced right posterior 12th rib, comminuted segmental fractures involving the posterior 11 rib, additional posterolateral slightly displaced fracture of the right 11th rib, nondisplaced posterior right 10th rib, slightly displaced right posterolateral 10th rib, minimally displaced posterolateral 9th rib, minimally displaced right posterior ninth rib, small right-sided pneumothorax 10-15 hem[address] volume Given abnormal CT findings. The call was placed to cardiothoracic surgeon who recommended admission to PCU by medical team with consult to anesthesiology for epidural placement or localized nerve block. A call was placed to anesthesiology and case was discussed. He recommended patient be placed NPO, and will see patient after he has been seen by Ger(CT surgery) On assessment patient complains of significant pain, very limiting Home Medications Scheduled Aspirin (Aspirin EC) 81 Mg Tablet.dr, 81 MG PO DAILY, (Reported) Cholecalciferol (Vitamin D3) (Vitamin D3) 2,000 Unit Cap, 2,000 UNIT PO QHS, (Reported) L.acidoph/L.bulg/B.bif/S.therm (Bacid Caplet) 1 Each Tablet, 2 TAB PO QHS, (Reported) Loratadine (Loratadine) 10 Mg Tablet, 10 MG PO DAILY, (Reported) Olmesartan/Amlodipin/Hcthiazid (Tribenzor 40-5-25 mg Tablet) 1 Each Tablet, 1 TAB PO DAILY, (Reported) Rosuvastatin Calcium (Crestor) 5 Mg Tab, 5 MG PO QHS, (Reported) Spironolactone (Spironolactone) 25 Mg Tablet, 12.5 MG PO DAILY, (Reported) Scheduled PRN Lidocaine (Lidocaine) 5 % Pad, 1 PATCH TOP DAILY PRN for PAIN, (Reported) APPLY TO LOWER BACK Allergies Coded Allergies: No Known Allergies (Verified , 01/09/03) Past Medical History Medical History Hypertension Hyperlipidemia Peripheral arterial disease Pilonidal cysts. Prostate cancer Irritable bowel syndrome. Spinal stenosis Obesity Surgical History Pilonidal cyst removal. Right femoral popliteal bypass. Removal of right lump in neck Family History Father: CHF Mother: CHF Social History * Smoker: Denies Alcohol: rarely Drugs: denies A-FIB/CHADSVASC A-FIB History Current/History of A-Fib/PAF?: No Current PO Anticoag Therapy: No Review of Systems Other systems A pertinent 10 point review of systems is completed, negative except as stated in the history of presenting illness Physical Examination Other physical findings GENERAL: NAD SKIN : Warm, dry intact HEENT: Atraumatic, normocephalic, PERRL, moist mucous membrane CARDIOVASCULAR: irregular rate and rhythm, S1S2, no JVD, no edema, distal pulses + and palpable RESP: diminished, no accessory muscle use noted ABDOMEN: BS+ non distended non tender MS: no joint deformities NEURO: Alert and oriented x 3, CN2-12 grossly intact PSYCH: no anxiety or agitation, appropriate mood and affect. Vital Signs Vital Signs Date Time Temp Pulse Resp B/P (MAP) Pulse Ox O2 Delivery O2 Flow Rate FiO2 01/20/19 04:21 156/68 (97) 01/20/19 04:15 95 99 01/20/19 00:47 20 01/19/19 22:41 97.3 Laboratory Data Labs 24H Laboratory Tests 2 01/19/19 23:52: Immature Granulocyte % (Auto) 0.7, White Blood Count 16.2H, Red Blood Count 4.23L, Hemoglobin 13.4L, Hematocrit 40.8L, Mean Corpuscular Volume 96.5H, Mean Corpuscular Hemoglobin 31.7, Mean Corpuscular Hemoglobin Concent 32.8, Red Cell Distribution Width 13.2, Platelet Count 226, Neutrophils (%) (Auto) 88.1H, Lymphocytes (%) (Auto) 4.8L, Monocytes (%) (Auto) 5.4H, Eosinophils (%) (Auto) 0.8, Basophils (%) (Auto) 0.2, Neutrophils # (Auto) 14.3H, Lymphocytes # (Auto) 0.8L, Monocytes # (Auto) 0.9H, Eosinophils # (Auto) 0.1, Basophils # (Auto) 0.0, Nucleated Red Blood Cells % (auto) 0.0, Anion Gap 8, Glomerular Filtration Rate 45.5, Blood Urea Nitrogen 41H, Creatinine 1.56H, Sodium Level 140, Potassium Level 4.5, Chloride Level 104, Carbon Dioxide Level 28, Calcium Level 8.7L CBC/BMP Laboratory Tests 01/19/19 23:52 Red Blood Count 4.23 L, Mean Corpuscular Volume 96.5 H, Mean Corpuscular Hemoglobin 31.7, Mean Corpuscular Hemoglobin Concent 32.8, Red Cell Distribution Width 13.2, Neutrophils (%) (Auto) 88.1 H, Lymphocytes (%) (Auto) 4.8 L, Monocytes (%) (Auto) 5.4 H, Eosinophils (%) (Auto) 0.8, Basophils (%) (Auto) 0.2, Neutrophils # (Auto) 14.3 H, Lymphocytes # (Auto) 0.8 L, Monocytes # (Auto) 0.9 H, Eosinophils # (Auto) 0.1, Basophils # (Auto) 0.0, Calcium Level 8.7 L Assessment/Plan Right pneumothorax -10-15% hemithoracic volume with concomitant right rib fracture - -No flail chest on assessment -Cardiothoracic surgery has been consulted by emergency room physician assessment is pending -At this time continue patient on 2 L nasal cannula -Close monitoring in ICU -Follow recommendations for management by cardiothoracic team Right rib fracture - through posteriorly -Anesthesiology has been consulted per recommendations by cardiothoracic specialist -they will place nerve block after patient has been assessed by pulmonology -at this time recommending patient be kept NPO and check PT/PTT PAD -s/p right fem-pop bypass DVT prophylaxis -TEDs/SCDs Plan / VTE VTE Prophylaxis Ordered?: Yes CHELSIE BRYAN Jan 20, 2019 04:59
[2019-01-20 05:11] LABS: INR 1.08; PROTHROMBIN TIME 13.7 SECONDS (11.8-14.0)
[2019-01-20 05:12] LABS: PARTIAL THROMBOPLASTIN TIME 28.6 SECONDS (25.0-38.4)
--- NOTE | 2019-01-20 05:46 | ECGEPIP ---
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
[2019-01-20 06:00] VITALS: BP 116/57
--- NOTE | 2019-01-20 07:33 | REP ---
Portable chest, 06:56 a.m., single AP view with the patient semi upright: Comparison is 04/02/2017. There is a small right apical pneumothorax as an interval change with the pleural separation measuring approximately 1 cm. There is effacement of the left costophrenic angle suggestive of a small left pleural effusion as an interval change. The lung chapin otherwise clear. Cardiac size is upper normal. The natalie, mediastinum, skeletal structures are unremarkable. Impression: Small right pneumothorax. Small left pleural effusion. Electronically Signed by Delfino Pendleton MD 01/20/2019 07:24 A
[2019-01-20 08:00] VITALS: BP 119/68
[2019-01-20 08:53] LABS: HEMOGLOBIN 13.8 g/dl (13.5-17.5); MEAN CORPUSCULAR HEMOGLOBIN 33.2 pg (27.0-33.0); MEAN CORPUSCULAR HGB CONC 32.9 g/dl (32.0-36.5); PLATELET COUNT, AUTOMATED 208 10^3/uL (150-450); RED BLOOD COUNT 4.16 10^6/uL (4.30-6.10); WHITE BLOOD COUNT 14.5 10^3/uL (4.0-10.0)
[2019-01-20 09:06] LABS: ALBUMIN 3.5 GM/DL (3.2-5.2); BILIRUBIN,TOTAL 0.8 MG/DL (0.2-1.0); CALCIUM LEVEL 8.4 MG/DL (8.8-10.2); CREATININE FOR GFR 1.48 MG/DL (0.70-1.30); GLOMERULAR FILTRATION RATE 48.3 (>35); POTASSIUM SERUM 5.2 MEQ/L (3.5-5.1); TOTAL PROTEIN 6.4 GM/DL (6.4-8.2)
[2019-01-20] MEDS: LR 1,000 ML IV SCH ×2 (09:20→16:41)
[2019-01-20] MEDS ORDERED: MIDAZOLAM INJ 2 MG/2 ML VIAL (J2250) As Ordered ONE (09:28)
[2019-01-20] MEDS ORDERED: fentaNYL 100 MCG/2 ML INJECTION (J3010) As Ordered ONE (09:28)
[2019-01-20] MEDS ORDERED: WALLBOXKEY XX PRN (10:00)
[2019-01-20] MEDS ORDERED: NALOXONE INJ 0.4 MG/1 ML VIAL (J2310) IV PRN (10:00)
[2019-01-20] MEDS ORDERED: METOCLOPRAMIDE INJ 10MG/2ML VIAL (J2765) IV PRN (10:00)
[2019-01-20] MEDS ORDERED: EPIDURAL/PCA KEYS XX PRN (10:00)
[2019-01-20] MEDS ORDERED: diphenhydrAMINE INJ 50MG/ML VIAL (J1200) IV PRN (10:00)
[2019-01-20] MEDS ORDERED: PILL CUTTER 1 EACH XX PRN (10:00)
[2019-01-20] MEDS: fentaNYL 100 MCG/2 ML INJECTION (J3010) IV SCH ×2 (10:02→10:10)
[2019-01-20] MEDS: BUPIVACAINE/NACL BAG 250 ML EPIDURAL SCH (10:40)
[2019-01-20] MEDS ORDERED: fentaNYL 100 MCG/2 ML INJECTION (J3010) IV ONE (11:00)
[2019-01-20 11:42] VITALS: BP 110/61
[2019-01-20] MEDS: LORATADINE 10 MG TAB PO SCH (11:48)
[2019-01-20] MEDS: OLMESARTAN MEDOXOMIL 20 MG TAB (BENICAR) PO SCH (11:48)
[2019-01-20] MEDS: amLODIPine 5 MG TAB PO SCH (11:48)
[2019-01-20] MEDS: SPIRONOLACTONE 12.5MG PER 1/2 TABLET PO SCH (11:49)
[2019-01-20] MEDS: ASPIRIN 81 MG ENTERIC TAB PO SCH (11:49)
--- NOTE | 2019-01-20 14:08 | IPNPDOC ---
Text Note Date of Service The patient was seen on 01/20/19. NOTE S: patient sent down this AM for epidural due to multiple rib fractures after f all. He has been seen and evaluated at 1400. States moderate pain relief with epidural and with movement occasional breath thru pain. at bedside. He denies SOB, urine retention or substernal chest pain. O:Vitals as below General: pleasant , mild distress, AOx3 HRRR LCTA with diminished breathsounds anteriorly; rib crepitus Ext no edema or bruising to hip/knees/legs Abdomen soft NT ND NABS CXR: There is a small right apical pneumothorax as an interval change with the pleural separation measuring approximately 1 cm. There is effacement of the left costophrenic angle suggestive of a small left pleural effusion as an interval change. The lung chapin otherwise clear. Cardiac size is upper normal. The natalie, mediastinum, skeletal structures are unremarkable. Impression: Small right pneumothorax. Small left pleural effusion. A/P: Right pneumothorax -10-15% hemithoracic volume with concomitant right rib fracture 9-12 -No flail chest on assessment -Cardiothoracic surgery consulted -IS/PEP Right rib fracture - through 12 posteriorly -Anesthesiology has been consulted for nerve block per recommendations by cardiothoracic specialist HTN - continue ARB and norvasc. hold HCTZ until euvolemic CKD III - stable PAD - stable -s/p right fem-pop bypass DVT prophylaxis -TEDs/SCDs VS,Fishbone, I+O VS, Fishbone, I+O Laboratory Tests 01/19/19 23:52 Red Blood Count 4.23 L, Mean Corpuscular Volume 96.5 H, Mean Corpuscular Hemoglobin 31.7, Mean Corpuscular Hemoglobin Concent 32.8, Red Cell Distribution Width 13.2, Neutrophils (%) (Auto) 88.1 H, Lymphocytes (%) (Auto) 4.8 L, Monocytes (%) (Auto) 5.4 H, Eosinophils (%) (Auto) 0.8, Basophils (%) (Auto) 0.2, Neutrophils # (Auto) 14.3 H, Lymphocytes # (Auto) 0.8 L, Monocytes # (Auto) 0.9 H, Eosinophils # (Auto) 0.1, Basophils # (Auto) 0.0, Calcium Level 8.7 L Vital Signs Date Time Temp Pulse Resp B/P (MAP) Pulse Ox O2 Delivery O2 Flow Rate FiO2 01/20/19 06:00 97.5 74 18 116/57 (76) 99 2.0 I&O- Last 24 Hours up to 6 AM 01/20/19 06:00 Intake Total 0 ml Output Total 0 ml Balance 0 ml SUMI TESFAYE DO Jan 20, 2019 08:27
[2019-01-20] MEDS ORDERED: oxyCODONE 5MG TAB PO PRN (15:00)
[2019-01-20 16:53] VITALS: BP 110/60
[2019-01-20] MEDS ORDERED: ACETAMINOPHEN TAB 650MG DOSE (2X325MG) PO PRN (18:30)
[2019-01-20] MEDS ORDERED: NORCO, ANEXSIA 5/325MG TABLET (HYDROcodone/ACETAMINOPHEN) PO PRN (18:30)
[2019-01-20] MEDS ORDERED: LEVALBUTEROL 1.25 MG/0.5 ML CONCENTRATE NEB NEB PRN (18:30)
[2019-01-20] MEDS ORDERED: BISACODYL 10 MG SUPP PR PRN (18:30)
--- NOTE | 2019-01-20 19:22 | CR ---
DATE OF CONSULTATION: 01/20/2019 Patient is seen at the request of the emergency room and the hospitalist service with regards to rib fractures and small pneumothorax. HISTORY OF PRESENT ILLNESS: Patient is an 84-year-old white male who tripped at the top of a flight of about 6 stairs and he was carrying a laundry basket. He did not loose consciousness or feel faint prior to his fall. He fell down the stairs on his back and experienced immediate pain in the right posterior hemithorax. This was accompanied by shortness of breath. His chest x-ray was not done. Right CAT scan showed multiple right side rib fractures, numbers 9, 10, 11, and 12 which were essentially nondisplaced and in good alignment. He had a very small almost miniscule pneumothorax, maybe 2% by volume in the upper extent of the hemothorax. As the phone call came around 3 o'clock in the morning and he was in distress from his pneumothorax but in a considerable amount of pain I asked that anesthesia be consulted to place an epidural as the mainstay of rib fracture carries pain control. It was not for his intense pain I would have watched him for 6 hours and run another chest x-ray and it the pneumothorax was stable I would have sent him home with analgesia. He was admitted to the hospital. Anesthesia would not see him until I personally saw him which occurred around 7 o'clock this morning. Upon seeing the patient he is in a considerable amount of pain especially when he takes a deep breath. He is tender in the posterior right hemithorax. He does not complain any cough or dysphagia or chest pain or shortness of breath. PAST MEDICAL HISTORY: Hypertension, hyperlipidemia, prostate carcinoma, irritable bowel syndrome, spinal stenosis and peripheral vascular disease. PAST SURGICAL HISTORY: Right femoral popliteal bypass, pilonidal cyst excision. HABITS: Does not smoke, does not drink and there are no illicit drugs. It should be noted that he underwent a full cardial evaluation by Dr. Hoff and was not found to have any significant disease or symptomatology. PAST MEDICATIONS AT HOME: Aspirin 81 mg daily, vitamin D3 2,000 units daily, Bacid 2 tabs at bedtime, loratadine 10 mg daily, Tribenzor 40-25-5 1 tab daily, Crestor 5 mg at bedtime and spironolactone 12.5 mg daily. ALLERGIES: None. TRAVEL HISTORY: Not relevant to the acute situation. OCCUPATIONAL HISTORY: Not relevant to the acute situation. EXPOSURES: Not relevant to the acute situation. FAMILY HISTORY: The father and mother of CHF. REVIEW OF SYSTEMS: EYES: Without diplopia. Without amaurosis fugax. Without prior jaundice. NOSE: Without epistaxis. RESPIRATORY: See HPI. CARDIAC: See HPI. GASTROINTESTINAL (GI): Without nausea, vomiting, diarrhea, constipation, melena or hematochezia. GENITOURINARY (): Without dysuria or hematuria. Does have a history of prostate cancer. ENDOCRINE: With diabetes. Without thyroid disease. HEMATOLOGIC: Without prolonged bleeding times. NEUROLOGIC: Without paresthesias, paralyses, or seizures. He does have spinal stenosis. PSYCHIATRIC: Without pathological anxieties, depression or psychoses. PHYSICAL EXAMINATION: Well developed, well nourished, obese white male in acute distress from pain. VITAL SIGNS: In the emergency room his blood pressure is 156/68 with a pulse of 95 in a sinus rhythm who is 99% saturated on room air. Temperature 97.3, respiratory rate of 20 without the use os accessory muscles. EYES: Pupils equal and reactive to light. Extraocular movements intact. Sclerae anicteric. NOSE: Without deformity. MOUTH: Shows her mucous membranes to be pink and moist. Lips and commissures without lesions. There is no thrush. HEAD: Is normocephalic. NECK: Is supple. There is no jugular venous distention, no subcutaneous emphysema. Trachea is midline. There is no lymphadenopathy or thyromegaly. LUNGS: Show equal breath sounds on either side with slightly decreased breath sounds on the right side secondary to splinting. CARDIAC EXAMINATION: Is without murmurs, clicks, gallops, or rubs. I cannot feel his point of maximal impulse (PMI). S1 and S2 are normal. ABDOMEN: Is soft, nontender. Bowel sounds are positive. There is no hepatomegaly and no costovertebral angle (CVA) tenderness except from his right rib fractures. EXTREMITIES: Show trace pretibial edema. No calf tenderness. No differential swelling of the upper extremities. SKIN: Is warm, dry, and perfused without cyanosis or mottling, including that of the nail beds or the knees. NEUROLOGICAL: Shows II-XII intact, along with gross motor and gross sensation intact. Gait is not tested. PSYCHIATRIC: Shows him to be awake and alert and oriented times three with appropriate mood and affect and conversational. INVESTIGATIONS: White count 16.2, hemoglobin 13.4, platelet count is 226 and differential shows 88% neutrophils, 4% lymphocytes, and 5% monocytes. No immature forms were noted, and there were no toxic granulations noted. Chemistries today show normal electrolytes with a BUN and creatinine of 41 and 1.56 with a glucose of 139, a calcium of 8.7. Prior admissions in 2017 show creatinine vary between 1.03 and 1.1. PT/INR 13.7 and 1.08 respectively with a PTT of 28 seconds. There is no urinalysis on him. His chest CT shows the multiple rib fractures on the right side on 9, 10, 11 and 12. These are all posterior. He had a very small anterior pneumothorax as he is being imaged supine. Liver is intact and there is no lacerations. Spleen is intact. Stomach is very full. The CT was done without contrast. There is no widening of the mediastinum. Great vessels looked to be intact. He has extensive coronary calcifications in both the LAD circumflex and right coronary artery. Chest x-ray done this morning at approximately 7 o'clock showed no increase in the pneumothorax. There is a small rim at the cupula of the chest. X-ray was done portably. A most a 1 cm space. IMPRESSION: 1. Multiple rib fractures in need of pain control. 2. Small unchanging pneumothorax. 3. Hypertension. 4. History of prostate cancer. PLAN AND DISCUSSION: I will ask anesthesia to place an epidural. We will follow his chest x-rays over the course of a few days. It was noted in the introduction the mainstay of rib fracture is pain control. We will start him on lung expansion therapy.
[2019-01-20 20:00] VITALS: BP 148/69
[2019-01-20] MEDS: LEVALBUTEROL 1.25 MG/0.5 ML CONCENTRATE NEB NEB SCH (21:12)
[2019-01-20] MEDS: ROSUVASTATIN 10 MG TAB (CRESTOR) PO SCH (21:56)
[2019-01-20] MEDS: LACTOBACILLUS ACIDOPHILUS CAP (BACID) PO SCH (21:56)
[2019-01-20] MEDS: VITAMIN D 1,000 INTERNATIONAL UNITS TABLET PO SCH (21:56)
[2019-01-20] MEDS: HEPARIN SOD (PORCINE) 5000 UNITS/ML VIAL SC SCH (21:57)
[2019-01-20] MEDS: DOCUSATE SODIUM 100 MG CAP PO SCH (21:57)
[2019-01-20] MEDS: LACRILUBE (AKWA TEARS) OPHTH OINT 3.5 GM OU SCH (23:32)
[2019-01-21] VITALS (24 sets, daily range): BP systolic 81–160; BP diastolic 42–74
[2019-01-21] MEDS: LEVALBUTEROL 1.25 MG/0.5 ML CONCENTRATE NEB NEB SCH ×5 (01:56→19:45)
[2019-01-21 04:22] LABS: BASO % 0.2 % (0.0-1.0); EOS # 0.1 10^3/uL (0.0-0.50); EOS % 0.6 % (0.0-3.0); HEMATOCRIT 34.8 % (42.0-52.0); LYMPH # 0.6 10^3/uL (1.5-4.5); LYMPH % 6.8 % (24.0-44.0); MEAN CORPUSCULAR VOLUME 96.9 fl (80.0-96.0); MONO # 0.9 10^3/uL (0.0-0.8); MONO % 9.8 % (0.0-5.0); NEUTROPHILS # 7.1 10^3/uL (1.8-7.7); NEUTROPHILS % 82.5 % (36.0-66.0); PLATELET COUNT, AUTOMATED 166 10^3/uL (150-450); RED BLOOD COUNT 3.59 10^6/uL (4.30-6.10); WHITE BLOOD COUNT 8.7 10^3/uL (4.0-10.0)
[2019-01-21 04:35] LABS: ALBUMIN 2.7 GM/DL (3.2-5.2); ALT/SGPT 20 U/L (12-78); BILIRUBIN,TOTAL 0.6 MG/DL (0.2-1.0); BLOOD UREA NITROGEN 31 MG/DL (7-18); CALCIUM LEVEL 7.8 MG/DL (8.8-10.2); CARBON DIOXIDE LEVEL 27 MEQ/L (21-32); CHLORIDE LEVEL 109 MEQ/L (98-107); CREATININE FOR GFR 1.19 MG/DL (0.70-1.30); GLOMERULAR FILTRATION RATE > 60.0 (>35); GLUCOSE, FASTING 130 MG/DL (70-100); POTASSIUM SERUM 3.8 MEQ/L (3.5-5.1); SODIUM LEVEL 141 MEQ/L (136-145); TOTAL PROTEIN 5.7 GM/DL (6.4-8.2)
[2019-01-21] MEDS: LR 1,000 ML IV SCH (04:52)
[2019-01-21] MEDS: BUPIVACAINE/NACL BAG 250 ML EPIDURAL SCH ×3 (05:16→09:19)
[2019-01-21 05:26] LABS: HEMOGLOBIN 11.5 g/dl (13.5-17.5)
[2019-01-21 05:46] LABS: ABG BASE EXCESS 1.1 (-2.0-2.0); ABG HCO3 25.7 MEQ/L (22.0-26.0); ABG O2 SATURATION 94.8 % (95.0-99.0); ABG PARTIAL PRESSURE CO2 40.8 mmHg (35.0-45.0); ABG PARTIAL PRESSURE O2 71.1 mmHg (75.0-100.0); ABG STANDARD HCO3 25.4 MEQ/L (22.0-26.0); ABG TOTAL CO2 26.9 MEQ/L (23.0-31.0); ABG pH (ARTERIAL) 7.417 UNITS (7.350-7.450)
[2019-01-21] MEDS: amLODIPine 5 MG TAB PO SCH (09:00)
[2019-01-21] MEDS: SPIRONOLACTONE 12.5MG PER 1/2 TABLET PO SCH (09:00)
[2019-01-21] MEDS: OLMESARTAN MEDOXOMIL 20 MG TAB (BENICAR) PO SCH (09:00)
[2019-01-21] MEDS ORDERED: MOM 30ML SUSPENSION UDC PO SCH (09:00)
[2019-01-21] MEDS: ONDANSETRON 4MG/2ML VIAL (J2405) IV PRN (09:09)
[2019-01-21] MEDS: HEPARIN SOD (PORCINE) 5000 UNITS/ML VIAL SC SCH ×2 (09:10→21:10)
[2019-01-21] MEDS: PANTOPRAZOLE 40MG TAB (PROTONIX) PO SCH (09:10)
[2019-01-21] MEDS: LACRILUBE (AKWA TEARS) OPHTH OINT 3.5 GM OU SCH ×3 (09:10→21:12)
[2019-01-21] MEDS: ASPIRIN 81 MG ENTERIC TAB PO SCH (09:11)
[2019-01-21] MEDS: DOCUSATE SODIUM 100 MG CAP PO SCH ×2 (09:11→21:11)
[2019-01-21] MEDS: LORATADINE 10 MG TAB PO SCH (09:11)
--- NOTE | 2019-01-21 09:15 | IPNPDOC ---
Text Note Date of Service The patient was seen on 01/21/19. NOTE S: patient complaining of constipation today. He states pain to ribs is well c ontrolled. no N, no V; no SOB O: vitals as below General: pleasant NAD AAOx3 Heart - irreg/irreg at 70 bpm LCTA no W/R/R; epidural intact and dose recently decreased Ext: no ankle edema CXR - pending TELE: bigeminey A/P: Right pneumothorax management by cardiothoracic due to right rib fracture - -IS/PEP CXR pending. possible transfer to [facility] if CXR improved and okay with CT Surgeon Right rib fracture - through posteriorly -epidural placed 01/20/19 HTN - continue ARB and norvasc. hold HCTZ; d/c LR IVF CKD III - stable PAD - stable -s/p right fem-pop bypass DVT prophylaxis : -TEDs/SCDs, ambulate Current Medications Acetaminophen (Tylenol Tab) 650 mg Q6HP PRN PO T > 101.5 or MADERA; Start 01/20/19 at 18:30 Amlodipine Besylate (Norvasc) 5 mg DAILY PO Last administered on 01/20/19at 11:48; Start 01/20/19 at 09:00 Artificial Tears (Lacri-Lube Ophth Ointment) 1 dose TID OU Last administered on 01/20/19at 23:32; Start 01/20/19 at 21:00 Aspirin (Ecotrin) 81 mg DAILY PO Last administered on 01/20/19at 11:49; Start 01/20/19 at 09:00 Bisacodyl (Dulcolax Suppository) 10 mg Q4HP PRN [place] CONSTIPATION; Start 01/20/19 at 18:30 Bupivacaine HCl/ Sodium Chloride 250 ml @ 12 mls/hr [id number] EPIDURAL Last administered on 01/21/19at 05:18; Start 01/20/19 at 10:00 Diphenhydramine HCl (Benadryl) 12.5 mg Q4HP PRN IV ITCHING; Start 01/20/19 at 10:00 Docusate Sodium (Colace) 200 mg BID PO Last administered on 01/20/19at 21:57; Start 01/20/19 at 21:00 Fentanyl Citrate (Sublimaze) 25 mcg ASDIRECTED IV Last administered on 01/20/19at 10:10; Start 01/20/19 at 11:00; Stop 01/21/19 at 11:01 Heparin Sodium (Porcine) (Heparin) 5,000 units Q12H SC Last administered on 01/20/19 21:57; Start 01/20/19 at 21:00 Lactated Ringer's 1,000 ml @ 50 mls/hr Q20H IV Last administered on 01/21/19 04:52; Start 01/20/19 at 11:00 Lactobacillus Acidophilus (Bacid) 1 ea QHS PO Last administered on 01/20/19 21:56; Start 01/20/19 at 21:00 Levalbuterol HCl (Xopenex Neb) 1.25 mg Q2HP PRN NEB WHEEZING; Start 01/20/19 at 18:30 Levalbuterol HCl (Xopenex Neb) 1.25 mg RQ6H NEB Last administered on 01/21/19 07:44; Start 01/20/19 at 20:00 Loratadine (Claritin) 10 mg DAILY PO Last administered on 01/20/19 11:48; Start 01/20/19 at 09:00 Magnesium Hydroxide (Milk Of Magnesia) 30 ml DAILY PO ; Start 01/21/19 at 09:00 Metoclopramide HCl (REGLAN INJection) 10 mg Q6HP PRN IV NAUSEA; Start 01/20/19 at 10:00 Naloxone HCl (Narcan) 0.1 mg Q5MP PRN IV SEE LABEL COMMENTS; Start 01/20/19 at 10:00 Non-Formulary Medication (Epidural/CLAY ROASTER Mcqueeney) 1 each ASDIRECTED PRN XX SEE LABEL COMMENTS; Start 01/20/19 at 10:00 Non-Formulary Medication (Mcqueeney) ASDIRECTED PRN XX SEE LABEL COMMENTS; Start 01/20/19 at 10:00 Olmesartan (Benicar) 40 mg QAM PO Last administered on 01/20/19 11:48; Start 01/20/19 at 09:00 Ondansetron HCl (ZOFRAN INJection) 4 mg Q6HP PRN IV REFRACTORY NAUSEA; Start 01/20/19 at 10:00 Oxycodone HCl (Roxicodone, Oxyir) 5 mg Q6HP PRN PO PAIN; Start 01/20/19 at 15:00; Status Future Hold Oxycodone/ Acetaminophen (Percocet 5mg/ 325mg Tablet) 1 tab Q4HP PRN PO MODERATE PAIN (PS 5-7); Start 01/20/19 at 18:30; Status Future Hold Oxycodone/ Acetaminophen (Percocet 5mg/ 325mg Tablet) 2 tab Q4HP PRN PO SEVERE PAIN (PS 8-10); Start 01/20/19 at 18:30; Status Future Hold Pantoprazole Sodium (Protonix) 40 mg DAILY PO ; Start 01/21/19 at 09:00 Rosuvastatin Calcium (Crestor) 5 mg QHS PO Last administered on 01/20/19at 21:56; Start 01/20/19 at 21:00 Spironolactone (Aldactone) 12.5 mg DAILY PO Last administered on 01/20/19at 11:49; Start 01/20/19 at 09:00 Vitamin D (Vitamin D) 2,000 units QHS PO Last administered on 01/20/19at 21:56; Start 01/20/19 at 21:00 VS,Fishbone, I+O VS, Fishbone, I+O Laboratory Tests 01/21/19 03:55 Red Blood Count 3.59 L, Mean Corpuscular Volume 96.9 H, Mean Corpuscular Hemoglobin 32.0, Mean Corpuscular Hemoglobin Concent 33.0, Red Cell Distribution Width 13.2, Neutrophils (%) (Auto) 82.5 H, Lymphocytes (%) (Auto) 6.8 L, Monocytes (%) (Auto) 9.8 H, Eosinophils (%) (Auto) 0.6, Basophils (%) (Auto) 0.2, Neutrophils # (Auto) 7.1, Lymphocytes # (Auto) 0.6 L, Monocytes # (Auto) 0.9 H, Eosinophils # (Auto) 0.1, Basophils # (Auto) 0.0, Calcium Level 7.8 L, Aspartate Amino Transf (AST/SGOT) 17, Alanine Aminotransferase (ALT/SGPT) 20, Alkaline Phosphatase 46, Total Bilirubin 0.6, Total Protein 5.7 L, Albumin 2.7 #L Vital Signs Date Time Temp Pulse Resp B/P (MAP) Pulse Ox O2 Delivery O2 Flow Rate FiO2 01/21/19 04:00 98.5 81 20 140/74 (96) 95 01/20/19 11:24 2 I&O- Last 24 Hours up to 6 AM 01/21/19 06:00 Intake Total 2804 ml Output Total 1255 ml Balance 1549 ml SUMI TESFAYE DO Jan 21, 2019 09:15
--- NOTE | 2019-01-21 10:40 | REP ---
PA and lateral chest: Comparison is 01/20/2019. The right apical pneumothorax has resolved. The the left costophrenic angle is effaced, unchanged. Lung chapin otherwise clear and unchanged. Cardiac size is normal, unchanged. The natalie, mediastinum and skeletal structures are unremarkable, unchanged. Impression: The right pneumothorax has resolved. Persistent effacement of the left costophrenic angle. Electronically Signed by Delfino Pendleton MD 01/21/2019 10:31 A
[2019-01-21] MEDS ORDERED: D5W/0.9% SODIUM CHLORIDE 500 ML IV ONE ×2 (11:15→16:30)
[2019-01-21] MEDS: NORCO, ANEXSIA 5/325MG TABLET (HYDROcodone/ACETAMINOPHEN) PO PRN ×2 (11:20→18:54)
--- NOTE | 2019-01-21 11:40 | IPN ---
DATE: 01/21/2019 Mr. Mora had an epidural placed yesterday and he had immediate pain relief. Today, he says that he is doing very well and he has no pain at all in his lower chest. He is complaining of some neck pain, which has been chronic for a very long time. His vital signs show a maximum temperature (t-max) of 98.5 with a heart rate that ranges between 72 and 76 now in a bigeminal rhythm, which I did not appreciate yesterday. His respiratory rate is 16 to 20 without the use of accessory muscles, who is 93 to 99% saturated on room air and whose blood pressure is ranging between 140/74 to 99/49. In the last few hours, his blood pressure has remained soft on the low side in the high 90s and low 100s. His intake and output the past 24 hours has been recorded as 1900 in and 1000 out for a positivity of 800 mL. He has put out 1050 mL in urine. There is no weight on him today. PHYSICAL EXAMINATION: LUNGS: He has equal breath sounds on either side with normal vesicular sounds without wheezes, rhonchi or rales. Percussion note is full to the diaphragm. CARDIAC EXAM: He has a systolic murmur at the left lower sternal border. He has an irregular rate and rhythm with a coupled beats. S1, S2 are normal. ABDOMEN: Soft, nontender. Bowel sounds positive. There is no hepatomegaly. No costovertebral angle tenderness. He has not had a bowel movement in the hospital. EXTREMITIES: Show no pretibial edema. No calf tenderness. No differential swelling of the upper extremities. SKIN: Warm, dry and perfused without cyanosis or mottling, including that of the nail beds and knees. NECK: Supple. There is no jugular venous distention. No subcutaneous emphysema. Trachea is midline. MOUTH: Shows his mucous membranes to be pink and moist. Lips and commissures without lesions. There is no thrush. EYES: Show his pupils to be equal and reactive. Extraocular motion intact. Sclerae anicteric. NEUROLOGIC: Shows II through XII intact with gross motor and gross sensation intact. Gait is not tested. PSYCHIATRIC: Shows him to be awake and alert, oriented times three with appropriate mood and affect and conversational. His white count today is 8.7 with a hemoglobin and hematocrit of 11.5 and 34.8, respectively. Platelet count is 166 and differential shows 82% neutrophils, 6% lymphocytes, 9% monocytes. There are no immature forms. No toxic granulations. Electrolytes are essentially normal with a drop in his potassium from 5.2 to 3.8 today. BUN and creatinine are 31 and 1.19, which have now normalized. Glucose is 130 with a calcium of 7.8 and AST and ALT of 17 and 20, respectively with an albumin of 2.7. Albumin has gone from 3.5 to 2.7. All these findings can be explained by hemodilution, including his hematocrit drop. His chest x-ray shows his lung fully expanded to the chest wall except for a small 1 cm apical pneumothorax. There is no subcutaneous emphysema. Costophrenic angles are sharp. There is a little bit of crowding of vessels or atelectatic changes in the right lower hemithorax. IMPRESSION: 1. Multiple rib fractures with pain control now excellent. 2. Small unchanged pneumothorax. 3. Hypertension. 4. History of prostatic cancer. 5. Neck pain, which he describes as chronic. PLAN/DISCUSSION: As far as his pneumothorax is concerned, it is stable and does not need addressing. His pain control is excellent for his rib fractures and he is able to cough and take deep breaths, as well as use his incentive spirometer. I am very gratified by all of that. I think that he was probably a bit dehydrated when he came in and with fluid administration he is now probably back down to his baseline with regard to his hemoglobin and hematocrit and his creatinine. I am concerned about his neck pain. Even though it has been chronic, he has had it under control with physical therapy (PT) and in light of his fall, I think that we are obligated to clear his neck. I will therefore send him down for a cervical spine CT. I will also give him 500 mL of bolused fluid. It was noted yesterday by the nursing staff that once he got a beta kaushik his bigeminy markedly decreased. Beta kaushik was held today because of the soft blood pressure.
[2019-01-21] MEDS ORDERED: POTASSIUM CHLORIDE 10 MEQ SR TABLET PO ONE (12:00)
[2019-01-21] MEDS ORDERED: NS 500 ML IV PRN (12:30)
--- NOTE | 2019-01-21 17:31 | REP ---
CT study of the cervical spine without contrast: History: Neck pain after a fall. Technique: Helical scanning is acquired and overlapping 2 mm high resolution axial images were generated and reviewed at bone and soft tissue window settings. Coronal and sagittal multiplanar re-formations images are generated. CT findings: There is no evidence of cervical spine element fracture. No skull base fracture is seen. Cervical vertebral body heights are preserved. Alignment is normal. Facet joints are normally aligned bilaterally at each cervical level on multiplanar re-formations images. There is no evidence of intraspinal or paraspinal hematoma. No extra vertebral abnormality is seen. There are degenerative spondylosis changes in the cervical spine with osteoarthritic facet disease in the mid cervical spine bilaterally and degenerative disc changes most pronounced at C5-6. Facet joints are normally aligned. No fracture is seen. There is soft tissue emphysema tracking in the right neck soft tissues up from the chest. There are one or two bubbles of extradural air in the lower spinal canal as well associated with this. Vascular calcification is noted. Impression: No traumatic bony abnormality. Soft tissue extrathoracic emphysema noted. Degenerative spondylosis changes are noted. Otherwise negative study. Electronically Signed by Stanley Caraballo MD 01/24/2019 11:19 A
[2019-01-21] MEDS: MOM 30ML SUSPENSION UDC PO PRN (18:54)
[2019-01-21] MEDS: VITAMIN D 1,000 INTERNATIONAL UNITS TABLET PO SCH (21:11)
[2019-01-21] MEDS: LACTOBACILLUS ACIDOPHILUS CAP (BACID) PO SCH (21:11)
[2019-01-21] MEDS: ROSUVASTATIN 10 MG TAB (CRESTOR) PO SCH (21:12)
[2019-01-22] VITALS (9 sets, daily range): BP systolic 100–155; BP diastolic 50–71
[2019-01-22] MEDS: LEVALBUTEROL 1.25 MG/0.5 ML CONCENTRATE NEB NEB SCH ×4 (01:20→19:49)
[2019-01-22] MEDS: NORCO, ANEXSIA 5/325MG TABLET (HYDROcodone/ACETAMINOPHEN) PO PRN ×3 (03:30→18:21)
[2019-01-22 04:38] LABS: BASO % 0.4 % (0.0-1.0); EOS # 0.1 10^3/uL (0.0-0.50); HEMATOCRIT 35.3 % (42.0-52.0); HEMOGLOBIN 11.4 g/dl (13.5-17.5); LYMPH # 0.6 10^3/uL (1.5-4.5); LYMPH % 7.7 % (24.0-44.0); MEAN CORPUSCULAR HEMOGLOBIN 32.7 pg (27.0-33.0); MEAN CORPUSCULAR HGB CONC 32.3 g/dl (32.0-36.5); MEAN CORPUSCULAR VOLUME 101.1 fl (80.0-96.0); MONO # 0.7 10^3/uL (0.0-0.8); MONO % 9.5 % (0.0-5.0); NEUTROPHILS # 6.4 10^3/uL (1.8-7.7); PLATELET COUNT, AUTOMATED 159 10^3/uL (150-450); RED BLOOD COUNT 3.49 10^6/uL (4.30-6.10); WHITE BLOOD COUNT 7.8 10^3/uL (4.0-10.0)
[2019-01-22] MEDS: BUPIVACAINE/NACL BAG 250 ML EPIDURAL SCH (04:42)
[2019-01-22 05:09] LABS: CREATININE FOR GFR 1.56 MG/DL (0.70-1.30); GLOMERULAR FILTRATION RATE 45.5 (>35); POTASSIUM SERUM 4.6 MEQ/L (3.5-5.1)
[2019-01-22] MEDS ORDERED: FUROSEMIDE 20 MG/2 ML VIAL (J1940) IV ONE (09:15)
--- NOTE | 2019-01-22 09:18 | IPNPDOC ---
Text Note Date of Service The patient was seen on 01/22/19. NOTE S: patient states increasing rib pain started during the night and feels like e pidural no longer working. no CP, no N, no V; oliguria yesterday but this AM is starting to urinate more O: Vitals as below General: mild to moderate pain, AAOx3 Heart - IRREG, no murmur LCTA with scant rales (poor inspir effort due to rib fracture pain) Back: large fluid loculation to mid back distal/adjacent to epidural line (approx baseball size) Ext: no edema; TIANNA hose in place CXR report pending; image visualized with improved PNTX; mild pulm vascular congestion, no infiltrate TELE: bigemmeny at70 bpm A/P: Right pneumothorax - IMPROVING management by cardiothoracic due to right rib fracture - -IS/PEP Right rib fracture with pain - through posteriorly -epidural placed 01/20/19 and possibly displaced - anesthesia consulted to recheck line HYPOTENSION - resolved; 01/21 had hypotension most of day, recieved 4 liter IVF for BP support. HTN - continue ARB ,and norvasc (with hold parameters). hold HCTZ; 1 x dose lasix for fluid mobilization after receiving 4 liter IVF for BP support yesterday. CKD III - stable PAD - stable -s/p right fem-pop bypass DVT prophylaxis : -TEDs/SCDs, ambulate, Hep SC Current Medications Acetaminophen (Tylenol Tab) 650 mg Q6HP PRN PO T > 101.5 or MADERA; Start 01/20/19 at 18:30 Acetaminophen/ Hydrocodone Bitart ([place], Anexsia 5/325) 1 tab Q3HP PRN PO MILD PAIN (PS 1-4) Last administered on 01/22/19at 08:42; Start 01/20/19 at 19:00; Amlodipine Besylate (Norvasc) 5 mg DAILY PO Last administered on 01/20/19at 11:48; Start 01/20/19 at 09:00 Artificial Tears (Lacri-Lube Ophth Ointment) 1 dose TID OU Last administered on 01/21/19at 21:12; Start 01/20/19 at 21:00 Aspirin (Ecotrin) 81 mg DAILY PO Last administered on 01/21/19at 09:11; Start 01/20/19 at 09:00 Bisacodyl (Dulcolax Suppository) 10 mg Q4HP PRN LA CONSTIPATION; Start 01/20/19 at 18:30 Bupivacaine HCl/ Sodium Chloride 250 ml @ 14 mls/hr [id number] EPIDURAL Last administered on 01/22/19 04:42; Start 01/20/19 at 10:00 Diphenhydramine HCl (Benadryl) 12.5 mg Q4HP PRN IV ITCHING; Start 01/20/19 at 10:00 Docusate Sodium (Colace) 200 mg BID PO Last administered on 01/21/19 21:11; Start 01/20/19 at 21:00 Heparin Sodium (Porcine) (Heparin) 5,000 units Q12H SC Last administered on 01/21/19 21:10; Start 01/20/19 at 21:00 Lactobacillus Acidophilus (Bacid) 1 ea QHS PO Last administered on 01/21/19 21:11; Start 01/20/19 at 21:00 Levalbuterol HCl (Xopenex Neb) 1.25 mg Q2HP PRN NEB WHEEZING; Start 01/20/19 at 18:30 Levalbuterol HCl (Xopenex Neb) 1.25 mg RQ6H NEB Last administered on 01/22/19 07:48; Start 01/20/19 at 20:00 Loratadine (Claritin) 10 mg DAILY PO Last administered on 01/21/19 09:11; Start 01/20/19 at 09:00 Magnesium Hydroxide (Milk Of Magnesia) 30 ml BIDP PRN PO CONSTIPATION Last administered on 01/21/19 18:54; Start 01/21/19 at 09:15 Metoclopramide HCl (REGLAN INJection) 10 mg Q6HP PRN IV NAUSEA; Start 01/20/19 at 10:00 Naloxone HCl (Narcan) 0.1 mg Q5MP PRN IV SEE LABEL COMMENTS; Start 01/20/19 at 10:00 Non-Formulary Medication (Epidural/REFUSE COLLECTOR [place]) 1 each ASDIRECTED PRN XX SEE LABEL COMMENTS; Start 01/20/19 at 10:00 Non-Formulary Medication ([place]) ASDIRECTED PRN XX SEE LABEL COMMENTS; Start 01/20/19 at 10:00 Olmesartan (Benicar) 40 mg QAM PO Last administered on 01/20/19at 11:48; Start 01/20/19 at 09:00 Ondansetron HCl (ZOFRAN INJection) 4 mg Q6HP PRN IV REFRACTORY NAUSEA Last administered on 01/21/19 09:09; Start 01/20/19 at 10:00 Oxycodone HCl (Roxicodone, Oxyir) 5 mg Q6HP PRN PO PAIN; Start 01/20/19 at 15:00; Status Future Hold Oxycodone/ Acetaminophen (Percocet 5mg/ 325mg Tablet) 1 tab Q4HP PRN PO MODERATE PAIN (PS 5-7); Start 01/20/19 at 18:30; Status Future Hold Oxycodone/ Acetaminophen (Percocet 5mg/ 325mg Tablet) 2 tab Q4HP PRN PO SEVERE PAIN (PS 8-10); Start 01/20/19 at 18:30; Status Future Hold Pantoprazole Sodium (Protonix) 40 mg DAILY PO Last administered on 01/21/19at 09:10; Start 01/21/19 at 09:00 Rosuvastatin Calcium (Crestor) 5 mg QHS PO Last administered on 01/21/19 21:12; Start 01/20/19 at 21:00 Spironolactone (Aldactone) 12.5 mg DAILY PO Last administered on 01/20/19at 11:49; Start 01/20/19 at 09:00 Vitamin D (Vitamin D) 2,000 units QHS PO Last administered on 01/21/19 21:11; Start 01/20/19 at 21:00 VS,Fishbone, I+O VS, Fishbone, I+O Laboratory Tests 01/22/19 04:05 Red Blood Count 3.49 L, Mean Corpuscular Volume 101.1 H, Mean Corpuscular Hemoglobin 32.7, Mean Corpuscular Hemoglobin Concent 32.3, Red Cell Distribution Width 13.4, Neutrophils (%) (Auto) 81.0 H, Lymphocytes (%) (Auto) 7.7 L, Monocyt es (%) (Auto) 9.5 H, Eosinophils (%) (Auto) 1.0, Basophils (%) (Auto) 0.4, Neutrophils # (Auto) 6.4, Lymphocytes # (Auto) 0.6 L, Monocytes # (Auto) 0.7, Eosinophils # (Auto) 0.1, Basophils # (Auto) 0.0, Calcium Level 8.0 L Vital Signs Date Time Temp Pulse Resp B/P (MAP) Pulse Ox O2 Delivery O2 Flow Rate FiO2 01/22/19 08:42 98.4 71 20 155/70 96 2.0 I&O- Last 24 Hours up to 6 AM 01/22/19 05:59 Intake Total 2726 ml Output Total 500 ml Balance 2226 ml SUMI TESFAYE DO Jan 22, 2019 09:18
[2019-01-22] MEDS: HEPARIN SOD (PORCINE) 5000 UNITS/ML VIAL SC SCH ×2 (09:24→20:36)
[2019-01-22] MEDS: OLMESARTAN MEDOXOMIL 20 MG TAB (BENICAR) PO SCH (09:25)
[2019-01-22] MEDS: ASPIRIN 81 MG ENTERIC TAB PO SCH (09:26)
[2019-01-22] MEDS: LORATADINE 10 MG TAB PO SCH (09:26)
[2019-01-22] MEDS: amLODIPine 5 MG TAB PO SCH (09:26)
[2019-01-22] MEDS: SPIRONOLACTONE 12.5MG PER 1/2 TABLET PO SCH (09:26)
[2019-01-22] MEDS: LACRILUBE (AKWA TEARS) OPHTH OINT 3.5 GM OU SCH ×3 (09:26→20:38)
[2019-01-22] MEDS: DOCUSATE SODIUM 100 MG CAP PO SCH ×2 (09:26→20:36)
[2019-01-22] MEDS: PANTOPRAZOLE 40MG TAB (PROTONIX) PO SCH (09:26)
--- NOTE | 2019-01-22 11:07 | IPN ---
DATE OF SERVICE: 01/22/2019 Mr. Mora was essentially pain-free yesterday. However, last night around 9 o'clock, he started to become aware of pain in his right hemithorax. Today, he is complaining of pain of 3-4 out of 10. Anesthesia has seen him and has evaluated the epidural. Otherwise, he is sitting up in a chair and eating. His vital signs show a maximum temperature (Tmax) of 98.7 with a heart rate that ranges between 71 and 74 now in a sinus rhythm. His respiratory rate is 14-20 without the use of accessory muscles, who is 96% saturated on 2 liters nasal cannula and whose blood pressure is ranging between now 126/58 to 155/70. Yesterday, it had gotten down into the low 80s and high 90s. His intake and output over the past 24 hours has been recorded as 3460 in and 500 out for a positivity of 2900 mL. He has had a total intake of approximately 2400 mL of intravenous (IV) fluid. On physical examination, his lungs show equal breath sounds on either side. I hear no wheezes, rhonchi, or rales. Percussion note is full to the diaphragm. CARDIAC EXAM: Shows distant heart sounds without murmurs, click, gallops, or rubs. I cannot feel his point of maximal impulse (PMI). S1 and S2 are normal. ABDOMEN: Is soft, nontender. Bowel sounds are positive. There is no hepatomegaly. No costovertebral angle (CVA) tenderness. EXTREMITIES: Show trace pretibial edema. No calf tenderness. No differential swelling of the upper extremities. SKIN: Is warm, dry, and perfused without cyanosis or mottling, including that of the nail beds and the knees. NECK: Is supple. There is no jugular venous distention. No subcutaneous emphysema. Trachea is midline. MOUTH: Shows his mucous membranes to be pink and moist. Lips and commissures without lesions. There is no thrush. EYES: Show his pupils to be equal and reactive. Extraocular motion intact. Sclerae anicteric. NEUROLOGIC: Shows II-XII intact, along with gross motor and gross sensation intact. Gait is not tested. PSYCHIATRIC: Shows him to be awake and alert, oriented times three, with appropriate mood and affect and conversational. His white count today is 7.8 with a hemoglobin and hematocrit of 11.4 and 35.3, essentially unchanged from yesterday, with a platelet count of 159. Differential shows 81% neutrophils, 7% lymphocytes, 9% monocytes. There are no immature forms. No toxic granulations. Electrolytes are essentially normal today with a BUN and creatinine however of 35 and 1.56 markedly up from 31 and 1.19. He has never been on Toradol. Calcium is 8.0 with a glucose of 117. His chest x-ray shows resolution of the right pneumothorax. There is some blunting of the right costophrenic angle. Otherwise, I do not see infiltrates either on the PA or on the lateral views. IMPRESSION: 1. Multiple rib fractures with recurrence of pain but only moderate. 2. Pneumothorax, resolved. 3. Hypertension. 4. History of prostatic cancer. 5. Neck pain. 6. Renal failure secondary to hypotension. PLAN AND DISCUSSION: The neck CT yesterday cleared his neck for any acute fracture. It is better today. His pneumothorax is resolved, gratifyingly. I think his renal insufficiency and creatinine bump today is secondary to relative hypotension secondary to the epidural yesterday. His blood pressure has returned to normal. He was given extra fluid in response to his blood pressure. Now that his blood pressure is back up, he should start to perfuse his kidneys better, and hopefully his creatinine will return to normal. He has not been on Toradol. I would recommend that we leave the epidural on a total of 5 days from when it was put in. We should then wean him and convert him to oral pain medication.
[2019-01-22] MEDS ORDERED: FENTANYL/BUPIVACAINE BAG 250 ML EPIDURAL SCH (12:00)
[2019-01-22] MEDS ORDERED: NS 500 ML IV ONE (14:30)
[2019-01-22] MEDS: FENTANYL/BUPIVACAINE/NACL BAG 250 ML EPIDURAL SCH (15:14)
[2019-01-22] MEDS: VITAMIN D 1,000 INTERNATIONAL UNITS TABLET PO SCH (20:36)
[2019-01-22] MEDS: LACTOBACILLUS ACIDOPHILUS CAP (BACID) PO SCH (20:36)
[2019-01-22] MEDS: ROSUVASTATIN 10 MG TAB (CRESTOR) PO SCH (20:36)
[2019-01-23] VITALS (7 sets, daily range): BP systolic 125–173; BP diastolic 60–74
[2019-01-23] MEDS: LEVALBUTEROL 1.25 MG/0.5 ML CONCENTRATE NEB NEB SCH ×4 (01:43→20:59)
[2019-01-23] MEDS: NORCO, ANEXSIA 5/325MG TABLET (HYDROcodone/ACETAMINOPHEN) PO PRN (04:18)
[2019-01-23 04:32] LABS: BASO % 0.3 % (0.0-1.0); EOS # 0.2 10^3/uL (0.0-0.50); EOS % 2.4 % (0.0-3.0); HEMATOCRIT 33.4 % (42.0-52.0); HEMOGLOBIN 10.7 g/dl (13.5-17.5); LYMPH # 0.6 10^3/uL (1.5-4.5); LYMPH % 8.1 % (24.0-44.0); MEAN CORPUSCULAR HEMOGLOBIN 31.6 pg (27.0-33.0); MEAN CORPUSCULAR VOLUME 98.5 fl (80.0-96.0); MONO # 0.7 10^3/uL (0.0-0.8); MONO % 9.8 % (0.0-5.0); NEUTROPHILS # 5.3 10^3/uL (1.8-7.7); NEUTROPHILS % 79.1 % (36.0-66.0); PLATELET COUNT, AUTOMATED 169 10^3/uL (150-450); RED BLOOD COUNT 3.39 10^6/uL (4.30-6.10); WHITE BLOOD COUNT 6.8 10^3/uL (4.0-10.0)
[2019-01-23 04:47] LABS: CREATININE FOR GFR 1.35 MG/DL (0.70-1.30); GLOMERULAR FILTRATION RATE 53.7 (>35); POTASSIUM SERUM 4.5 MEQ/L (3.5-5.1)
--- NOTE | 2019-01-23 07:39 | REP ---
CHEST, TWO VIEWS: Two views of the chest are performed and compared to a prior study of 01/21/2019. No definite significant pneumothorax is seen. There is a small right effusion with mild right base atelectasis/infiltrate. There is small amount of emphysema on the inferior right chest wall. Left lung is essentially clear. The heart is normal in size. There is calcification of the thoracic aorta. There are degenerative changes of the spine. Electronically Signed by Delfino Najera MD 01/23/2019 10:26 P
[2019-01-23] MEDS: ASPIRIN 81 MG ENTERIC TAB PO SCH (09:23)
[2019-01-23] MEDS: SPIRONOLACTONE 12.5MG PER 1/2 TABLET PO SCH (09:23)
[2019-01-23] MEDS: HEPARIN SOD (PORCINE) 5000 UNITS/ML VIAL SC SCH ×2 (09:23→20:07)
[2019-01-23] MEDS: OLMESARTAN MEDOXOMIL 20 MG TAB (BENICAR) PO SCH (09:23)
[2019-01-23] MEDS: amLODIPine 5 MG TAB PO SCH (09:23)
[2019-01-23] MEDS: PANTOPRAZOLE 40MG TAB (PROTONIX) PO SCH (09:23)
[2019-01-23] MEDS: hydroCHLOROthiazide 12.5 MG CAPSULE PO SCH (09:24)
[2019-01-23] MEDS: DOCUSATE SODIUM 100 MG CAP PO SCH ×2 (09:24→20:07)
--- NOTE | 2019-01-23 09:24 | IPNPDOC ---
Text Note Date of Service The patient was seen on 01/23/19. NOTE S: pain controlled with current epidural drip. no more syncope or hypotension episodes with change in fentyl dose in epidural drip. States pain if he moves. no SOB, no N, nV O: Vitals as below General: Pleasant NAD AAOx3 HRRR no murmur LCTA no W/R/R Ext: no edema to ankles A/P: Right pneumothorax - RESOLVED management by cardiothoracic due to right rib fracture - -IS/PEP Right rib fracture with pain - through posteriorly -epidural placed 01/20/19 - needs to complete day 5 of epidural (per Dr Cyr recommendation) on 01/24/19, titrate off/switch to orals on 01/25 with possible d/c 01/27 if pain under control HYPOTENSION - resolved; 01/21 had hypotension most of day, received 4 liter IVF for BP support. HTN - continue ARB ,and norvasc (with hold parameters). restart home dose hctz CKD III - stable; had hypotension 01/21 and brief episode 01/22 with no signs of GAURI PAD - stable -s/p right fem-pop bypass DVT prophylaxis : -TEDs/SCDs, ambulate, Hep SC VS,Fishbone, I+O VS, Fishbone, I+O Laboratory Tests 01/23/19 03:54 Red Blood Count 3.39 L, Mean Corpuscular Volume 98.5 H, Mean Corpuscular Hemoglobin 31.6, Mean Corpuscular Hemoglobin Concent 32.0, Red Cell Distribution Width 13.4, Neutrophils (%) (Auto) 79.1 H, Lymphocytes (%) (Auto) 8.1 L, Monocytes (%) (Auto) 9.8 H, Eosinophils (%) (Auto) 2.4, Basophils (%) (Auto) 0.3, Neutrophils # (Auto) 5.3, Lymphocytes # (Auto) 0.6 L, Monocytes # (Auto) 0 .7, Eosinophils # (Auto) 0.2, Basophils # (Auto) 0.0, Calcium Level 8.0 L Vital Signs Date Time Temp Pulse Resp B/P (MAP) Pulse Ox O2 Delivery O2 Flow Rate FiO2 01/23/19 04:48 18 01/23/19 04:00 98.6 78 125/61 (82) 92 01/23/19 04:00 2.0 I&O- Last 24 Hours up to 6 AM 01/23/19 06:00 Intake Total 2265 ml Output Total 2025 ml Balance 240 ml SUMI TESFAYE DO Jan 23, 2019 07:28
[2019-01-23] MEDS: LORATADINE 10 MG TAB PO SCH (09:25)
[2019-01-23] MEDS: LACRILUBE (AKWA TEARS) OPHTH OINT 3.5 GM OU SCH ×3 (09:25→20:11)
[2019-01-23] MEDS: FENTANYL/BUPIVACAINE/NACL BAG 250 ML EPIDURAL SCH (16:43)
[2019-01-23] MEDS: ROSUVASTATIN 10 MG TAB (CRESTOR) PO SCH (20:07)
[2019-01-23] MEDS: LACTOBACILLUS ACIDOPHILUS CAP (BACID) PO SCH (20:07)
[2019-01-23] MEDS: VITAMIN D 1,000 INTERNATIONAL UNITS TABLET PO SCH (20:07)
[2019-01-24] MEDS: LEVALBUTEROL 1.25 MG/0.5 ML CONCENTRATE NEB NEB SCH ×4 (02:27→19:59)
[2019-01-24 04:00] VITALS: BP 140/89
[2019-01-24 04:53] LABS: BASO % 0.3 % (0.0-1.0); EOS # 0.2 10^3/uL (0.0-0.50); EOS % 3.3 % (0.0-3.0); HEMATOCRIT 34.9 % (42.0-52.0); HEMOGLOBIN 11.4 g/dl (13.5-17.5); LYMPH # 0.5 10^3/uL (1.5-4.5); LYMPH % 7.4 % (24.0-44.0); MEAN CORPUSCULAR HEMOGLOBIN 32.5 pg (27.0-33.0); MEAN CORPUSCULAR HGB CONC 32.7 g/dl (32.0-36.5); MEAN CORPUSCULAR VOLUME 99.4 fl (80.0-96.0); MONO # 0.6 10^3/uL (0.0-0.8); MONO % 9.8 % (0.0-5.0); NEUTROPHILS # 5.1 10^3/uL (1.8-7.7); NEUTROPHILS % 78.7 % (36.0-66.0); PLATELET COUNT, AUTOMATED 178 10^3/uL (150-450); RED BLOOD COUNT 3.51 10^6/uL (4.30-6.10); WHITE BLOOD COUNT 6.5 10^3/uL (4.0-10.0)
[2019-01-24 05:10] LABS: BLOOD UREA NITROGEN 26 MG/DL (7-18); CALCIUM LEVEL 7.9 MG/DL (8.8-10.2); CARBON DIOXIDE LEVEL 27 MEQ/L (21-32); CHLORIDE LEVEL 107 MEQ/L (98-107); CREATININE FOR GFR 1.17 MG/DL (0.70-1.30); GLOMERULAR FILTRATION RATE > 60.0 (>35); GLUCOSE, FASTING 108 MG/DL (70-100); POTASSIUM SERUM 4.1 MEQ/L (3.5-5.1); SODIUM LEVEL 140 MEQ/L (136-145)
--- NOTE | 2019-01-24 06:45 | IPN ---
DATE: 01/23/2019 This is now the third hospital day for Mr. Mora and the third day for his epidural. His pain control is being well managed, although it is not as good as it was the first day where he had no pain at all. He has about a 3 or 4 now. That does not keep him from taking deep breaths and effectively using his incentive spirometer. He walked the halls yesterday and he will be doing the same today. His vital signs show a T-max of 98.9 with a heart rate that ranges between 78 and 69 now in a sinus rhythm without bigeminy. Respiratory rate is 18-20 without the use of accessory muscles, who is 99-92% saturated on 2 liters nasal cannula, and whose blood pressure is now ranging between 125/61 to 152/67. His intake and output the past 24 hours has been recorded as 2084 in and 2074 out for near equality. His weight today is 98.2 kg compared to 97.8 kg yesterday. PHYSICAL EXAMINATION: On physical examination he has faint crackles during inspiration in the right hemithorax. I hear no wheezing. Percussion note is full to the diaphragm. Cardiac exam is without murmurs, clicks, gallops or rubs. I cannot feel his point of maximal impulse (PMI). S1 and S2 are normal. Abdomen is soft and nontender. Bowel sounds are positive. There is no hepatomegaly. No costovertebral angle (CVA) tenderness. He does have large ecchymosis on the right flank. Skin is warm, dry and perfused without cyanosis or mottling including that of the nail beds and the knees. Extremities show maybe trace pretibial edema. There is no differential swelling of the upper extremities. Neck is supple. There is no jugular venous distention. No subcutaneous emphysema. Trachea is midline. Mouth shows his mucous membranes to be pink and moist. Lips and commissures are without lesions. There is no thrush. Eyes show his pupils to be equal and reactive. Extraocular motors are intact. Sclera nonicteric. Neuro shows II through XII intact, along with gross motor and gross sensation intact. Gait is not tested. Psychiatric shows him to be awake and alert, oriented times three with appropriate mood and affect and conversational. His white count today is 6.0 with a hemoglobin and hematocrit of 10.7 and 33.3, slightly down from 11.4 and 35.3 yesterday. Differential shows 169 platelets and is stable. Differential show 79% neutrophils, 8% lymphocytes, 9% monocytes. There are no immature forms, no toxic granulations. His electrolytes are normal with a BUN and creatinine of 32 and 1.35, down from 35 and 1.56 yesterday. Glucose is 107 with a calcium of 8.0. His chest x-ray today shows an increase infiltrative opacity in the right lower lobe compared to yesterdays. The lateral film however shows an increase in the pleural effusion and/or pleural thickening, which could very well represent the appearance of an increased opacity in the right lower hemithorax and the PA film. It is minimally increased although, definitively so. IMPRESSION: 1. Multiple rib fractures with recurrence of pain, but only moderate. 2. Pneumothorax resolved. 3. Hypertension. 4. History of prostatic cancer. 5. Neck pain. 6. Renal failure secondary to hypotension from the epidural, resolving. PLAN AND DISCUSSION: The main thrust of his rib fracture therapy is pain control and now mobilization and chest expansion therapy. At this point in time, I am not to concerned about the opacity on the lateral film in the costophrenic angle. It probably represents a minimal hemothorax. We will continue to mobilize him.
[2019-01-24] MEDS: ONDANSETRON 4MG/2ML VIAL (J2405) IV PRN (07:32)
--- NOTE | 2019-01-24 08:06 | REP ---
PA and lateral chest: Comparison is 01/23/2019. The right pleural effusion and right lower lobe atelectasis are unchanged. Lung chapin otherwise clear and unchanged. Small amount of subcutaneous emphysema is again noted along the right lateral chest wall, unchanged. Cardiac size is normal. The natalie, mediastinum, skeletal structures are unchanged. The epidural catheter is unchanged. Impression: There is no interval change. Electronically Signed by Delfino Pendleton MD 01/24/2019 07:58 A
[2019-01-24 08:57] VITALS: BP 121/77
[2019-01-24] MEDS: HEPARIN SOD (PORCINE) 5000 UNITS/ML VIAL SC SCH ×2 (09:14→21:05)
[2019-01-24] MEDS: PANTOPRAZOLE 40MG TAB (PROTONIX) PO SCH (09:14)
[2019-01-24] MEDS: hydroCHLOROthiazide 12.5 MG CAPSULE PO SCH (09:14)
[2019-01-24] MEDS: OLMESARTAN MEDOXOMIL 20 MG TAB (BENICAR) PO SCH (09:14)
[2019-01-24] MEDS: ASPIRIN 81 MG ENTERIC TAB PO SCH (09:14)
[2019-01-24] MEDS: LACRILUBE (AKWA TEARS) OPHTH OINT 3.5 GM OU SCH ×3 (09:15→21:00)
[2019-01-24] MEDS: amLODIPine 5 MG TAB PO SCH (09:15)
[2019-01-24] MEDS: LORATADINE 10 MG TAB PO SCH (09:15)
[2019-01-24] MEDS: SPIRONOLACTONE 12.5MG PER 1/2 TABLET PO SCH (09:15)
[2019-01-24] MEDS: DOCUSATE SODIUM 100 MG CAP PO SCH ×2 (09:15→21:06)
--- NOTE | 2019-01-24 09:50 | REP ---
CHEST, TWO VIEWS: Two views of the chest are performed. Comparison 01/22/2019. No pneumothorax is visualized. There is decreased amount of air in the right chest wall soft tissues. Small right effusion and right base parenchymal opacity are stable. Left lung is unchanged. Heart is normal in size and the mediastinal silhouette is unchanged. Electronically Signed by Delfino Najera MD 01/25/2019 01:24 P
[2019-01-24] MEDS ORDERED: SLF 3 ML SYR IV PRN (12:15)
[2019-01-24] MEDS: MOM 30ML SUSPENSION UDC PO PRN (12:22)
[2019-01-24 12:40] VITALS: BP 129/63
[2019-01-24] MEDS: SLF 3 ML SYR IV SCH ×2 (14:37→21:06)
[2019-01-24 16:21] VITALS: BP 146/66
[2019-01-24] MEDS: FENTANYL/BUPIVACAINE/NACL BAG 250 ML EPIDURAL SCH (17:15)
--- NOTE | 2019-01-24 19:26 | IPNPDOC ---
Text Note Date of Service The patient was seen on 01/24/19. NOTE S: patient states pain free with epidural. no further hypotensive episodes asso ciated with fentyl. no N, no V, no SOB, no CP. pateint using IS and PEP O: Vitals as below General: pleasant, NAD AAOx3 Heart - irregular/regular (tele with bigeminy) LCTA with decrease breath sound at right base, no wheeze, no rales. no palpable rib crepitus with shallow breathing Ext no edema A/P: Right pneumothorax - RESOLVED management by cardiothoracic due to right rib fracture 03-17 -IS/PEP Right rib fracture with pain - through posteriorly -epidural placed 01/20/19 - needs to complete day 5 of epidural (per Dr Cyr recommendation) on 01/24/19, titrate off/switch to orals on 01/25 PT consulted HYPOTENSION - resolved; 01/21 had hypotension most of day, received 4 liter IVF for BP support. HTN - continue ARB norvasc,hctz; fluids mobilizing; good urine output CKD III - stable; had hypotension 01/21 and brief episode 01/22 with no signs of GAURI PAD - stable -s/p right fem-pop bypass VS,Fishbone, I+O VS, Fishbone, I+O Laboratory Tests 01/24/19 04:28 Red Blood Count 3.51 L, Mean Corpuscular Volume 99.4 H, Mean Corpuscular Hemoglobin 32.5, Mean Corpuscular Hemoglobin Concent 32.7, Red Cell Distribution Width 13.3, Neutrophils (%) (Auto) 78.7 H, Lymphocytes (%) (Auto) 7.4 L, Monocytes (%) (Auto) 9.8 H, Eosinophils (%) (Auto) 3.3 H, Basophils (%) (Auto) 0.3, Neutrophils # (Auto) 5.1, Lymphocytes # (Auto) 0.5 L, Monocytes # (Auto) 0.6, Eosinophils # (Auto) 0.2, Basophils # (Auto) 0.0, Calcium Level 7.9 L Vital Signs Date Time Temp Pulse Resp B/P (MAP) Pulse Ox O2 Delivery O2 Flow Rate FiO2 01/24/19 16:21 97.7 83 19 146/66 (92) 93 01/23/19 08:05 I&O- Last 24 Hours up to 6 AM 01/24/19 05:59 Intake Total 1112 ml Output Total 975 ml Balance 137 ml SUMI TESFAYE DO Jan 24, 2019 19:26
[2019-01-24 20:00] VITALS: BP 126/58
[2019-01-24] MEDS: LACTOBACILLUS ACIDOPHILUS CAP (BACID) PO SCH (21:05)
[2019-01-24] MEDS: NORCO, ANEXSIA 5/325MG TABLET (HYDROcodone/ACETAMINOPHEN) PO PRN (21:05)
[2019-01-24] MEDS: ROSUVASTATIN 10 MG TAB (CRESTOR) PO SCH (21:05)
[2019-01-24] MEDS: VITAMIN D 1,000 INTERNATIONAL UNITS TABLET PO SCH (21:08)
[2019-01-24 23:59] VITALS: BP 131/60
[2019-01-25] MEDS: LEVALBUTEROL 1.25 MG/0.5 ML CONCENTRATE NEB NEB SCH ×4 (00:52→20:07)
[2019-01-25 04:00] VITALS: BP 129/60
[2019-01-25 05:27] LABS: BASO % 0.6 % (0.0-1.0); EOS # 0.2 10^3/uL (0.0-0.50); EOS % 3.8 % (0.0-3.0); HEMATOCRIT 33.2 % (42.0-52.0); HEMOGLOBIN 10.7 g/dl (13.5-17.5); LYMPH # 0.5 10^3/uL (1.5-4.5); LYMPH % 10.2 % (24.0-44.0); MEAN CORPUSCULAR HEMOGLOBIN 31.7 pg (27.0-33.0); MEAN CORPUSCULAR HGB CONC 32.2 g/dl (32.0-36.5); MEAN CORPUSCULAR VOLUME 98.2 fl (80.0-96.0); MONO # 0.8 10^3/uL (0.0-0.8); MONO % 14.3 % (0.0-5.0); NEUTROPHILS # 3.8 10^3/uL (1.8-7.7); NEUTROPHILS % 70.5 % (36.0-66.0); PLATELET COUNT, AUTOMATED 188 10^3/uL (150-450); RED BLOOD COUNT 3.38 10^6/uL (4.30-6.10); WHITE BLOOD COUNT 5.3 10^3/uL (4.0-10.0)
[2019-01-25 05:54] LABS: CALCIUM LEVEL 8.3 MG/DL (8.8-10.2); CREATININE FOR GFR 1.31 MG/DL (0.70-1.30); GLOMERULAR FILTRATION RATE 55.6 (>35); POTASSIUM SERUM 4.3 MEQ/L (3.5-5.1)
[2019-01-25] MEDS: SLF 3 ML SYR IV SCH ×3 (06:43→20:20)
[2019-01-25] MEDS: ONDANSETRON 4MG/2ML VIAL (J2405) IV PRN (07:26)
[2019-01-25 08:00] VITALS: BP 141/64
--- NOTE | 2019-01-25 08:23 | REP ---
PA and lateral chest: Comparison is 01/24/2019. The right pleural effusion and right lower lobe atelectasis are unchanged. The lung chapin otherwise clear and unchanged. Small volume of subcutaneous emphysema along the right lateral chest wall has decreased. Cardiac size is normal. The natalie, mediastinum, skeletal structures are unchanged. The epidural catheter is unchanged. Impression: The volume of subcutaneous emphysema along the right lateral chest wall appears slightly decreased. No other interval change. Electronically Signed by Delfino Pendleton MD 01/25/2019 08:14 A
[2019-01-25] MEDS: hydroCHLOROthiazide 12.5 MG CAPSULE PO SCH (08:48)
[2019-01-25] MEDS: ASPIRIN 81 MG ENTERIC TAB PO SCH (08:48)
[2019-01-25] MEDS: PANTOPRAZOLE 40MG TAB (PROTONIX) PO SCH (08:48)
[2019-01-25] MEDS: DOCUSATE SODIUM 100 MG CAP PO SCH ×2 (08:48→20:19)
[2019-01-25] MEDS: LORATADINE 10 MG TAB PO SCH (08:48)
[2019-01-25] MEDS: amLODIPine 5 MG TAB PO SCH (08:48)
[2019-01-25] MEDS: SPIRONOLACTONE 12.5MG PER 1/2 TABLET PO SCH (08:48)
[2019-01-25] MEDS: OLMESARTAN MEDOXOMIL 20 MG TAB (BENICAR) PO SCH (08:49)
[2019-01-25] MEDS: HEPARIN SOD (PORCINE) 5000 UNITS/ML VIAL SC SCH ×3 (08:49→23:57)
[2019-01-25] MEDS: LACRILUBE (AKWA TEARS) OPHTH OINT 3.5 GM OU SCH ×3 (08:50→20:20)
--- NOTE | 2019-01-25 11:26 | IPN ---
DATE: 01/25/2019 I did not see Mr. Mora yesterday. Reportedly, his pain was being well controlled. Today, he is doing well and again his pain is being well controlled on the epidural. The epidural is now going at 10 mL/hr. He has not yet had a bowel movement and we have given him a Dulcolax suppository. His vital signs show a T-max of 98.3 with a heart rate that ranges between 73 and 79 in a sinus rhythm. Respiratory rate is constant at 16 without the use of accessory muscles. He is 93% saturated on room air. Blood pressure is ranging between 141/64 to 129/60. His intake and output over the past 24 hours has been recorded as 700 in and 375 out for a positivity of 325 mL. He does not like hospital food. His weight today is 97.7 kg compared to 94.4 kg yesterday. On physical examination, he has equal breath sounds on either side. Percussion notes are full to the diaphragm. I hear no wheezes, rhonchi or rales. Cardiac exam is without murmurs, clicks, gallops or rubs. He has a regular rate and rhythm. S1 and S2 are normal. I cannot feel his PMI. Abdomen is soft and nontender, but distended and tympanitic. There is no hepatomegaly. No costovertebral angle (CVA) tenderness. Extremities show no pretibial edema and no calf tenderness. No differential swelling of the upper extremities. Skin is warm, dry and perfused without cyanosis or mottling, including that of the nail beds and knees. Neck is supple. There is no jugular venous distention. No subcutaneous emphysema. Trachea is midline. Mouth shows his mucous membranes to be pink and moist. Lips and commissures are without lesions. There is no thrush. Eyes show his pupils to be equal and reactive. Extraocular motors are intact. Sclera nonicteric. Neuro shows II through XII intact, along with gross motor and gross sensation intact. Gait is not tested. Psychiatric shows him to be awake and alert, oriented times three with appropriate mood and affect and conversational. His chest x-ray today shows the lung fully expanded to the chest wall. There is a slight infiltrative process in the right lower hemithorax and a small right pleural effusion, most likely hemothorax. I suspect the infiltrative process is lung tissue in front of the costophrenic angle fluid collection. His white count today is 5.3 with a hemoglobin and hematocrit of 10.7 and 33.2 respectively with a platelet count of 188. Differential show 70% neutrophils, 10% lymphocytes, 14% monocytes. There are no immature forms and no toxic granulations. Electrolytes are normal with a BUN and creatinine back up to 28 and 1.31. Yesterday, he was 26 and 1.17. Glucose is 97 with a calcium of 8.3. IMPRESSION: 1. Multiple rib fractures with recurrent pain, but well controlled. 2. Pneumothorax, resolved. 3. Hypertension. 4. History of prostate cancer. 5. Neck pain. 6. Renal failure. PLAN AND DISCUSSION: I do note that his BUN and creatinine have again gone up. I first assigned his renal failure to his hypertension secondary to his epidural. I do not see any hypertension over the last 24 to 48 hours. It is only marginally elevated to 1.31 and he does have a large muscle mass. Nonetheless, this certainly deserves observing. I will wean his epidural today as it is now five days. Will wean him 1 mL an hour and will give him oral pain medicines during the wean. From my perspective, he can be discharged most likely tomorrow if we can keep his pain relatively well controlled. These are rib fractures and can certainly be followed up by his primary care physician, Dr. Estrada. His pneumothorax has been resolved for the last three days.
[2019-01-25 12:00] VITALS: BP 120/57
--- NOTE | 2019-01-25 12:18 | IPNPDOC ---
Subjective Date Seen The patient was seen on 01/25/19. Subjective Chief Complaint/HPI Patient seen and examined at the bedside. States that he has yet to have a bowel movement. Notes that he is passing flatus and denies any abdominal pain. He was given a suppository. Otherwise, the patient continues to progress with physical therapy, and notes that his pain is well controlled. Objective Physical Examination General Exam: Positive: Alert, Cooperative, No Acute Distress ENT Exam: Positive: Atraumatic, Mucous membr. moist/pink Neck Exam: Negative: JVD Chest Exam: Positive: Clear to auscultation, Normal air movement Heart Exam: Positive: Rate Normal, Normal S1, Normal S2 Abdomen Exam: Positive: Soft; Negative: Tenderness Extremity Exam: Negative: Tenderness, Swelling Psych Exam: Positive: Oriented x 3 Assessment /Plan Plan/VTE VTE Prophylaxis Ordered?: Yes Plan Right pneumothorax, resolved management by cardiothoracic due to right rib fracture 03-17 Cont IS/PEP Right rib fracture with pain Patient currently being weaned off of epidural with transition to PO Meds PT on board--patient's functional status improved Constipation Likely secondary to pain medications Patient states that he is passing flatus and denies any abdominal pain He was given a dose of a suppository this morning HTN Continue ARB, norvasc,hctz CKD III Serum Cr at baseline PAD - stable s/p right fem-pop bypass Dyslipidemia Continue statin GERD Continue PPI DVT Prophylaxis Heparin subcutaneous VS, I&O, 24H, Fishbone Vital Signs/I&O Vital Signs Date Time Temp Pulse Resp B/P (MAP) Pulse Ox O2 Delivery O2 Flow Rate FiO2 01/25/19 08:49 141/64 01/25/19 08:48 79 01/25/19 08:00 98.3 16 93 01/23/19 08:05 I&O- Last 24 Hours up to 6 AM 01/25/19 06:00 Intake Total 700 ml Output Total 475 ml Balance 225 ml Laboratory Data 24H LABS Laboratory Tests 2 01/25/19 05:12: Immature Granulocyte % (Auto) 0.6, White Blood Count 5.3, Red Blood Count 3.38L, Hemoglobin 10.7L, Hematocrit 33.2L, Mean Corpuscular Volume 98.2H, Mean Corpuscular Hemoglobin 31.7, Mean Corpuscular Hemoglobin Concent 32.2, Red Cell Distribution Width 13.3, Platelet Count 188, Neutrophils (%) (Auto) 70.5H, Lymphocytes (%) (Auto) 10.2L, Monocytes (%) (Auto) 14.3H, Eosinophils (%) (Auto) 3.8H, Basophils (%) (Auto) 0.6, Neutrophils # (Auto) 3.8, Lymphocytes # (Auto) 0.5L, Monocytes # (Auto) 0.8, Eosinophils # (Auto) 0.2, Basophils # (Auto) 0.0, Nucleated Red Blood Cells % (auto) 0.0, Anion Gap 5L, Glomerular Filtration Rate 55.6, Blood Urea Nitrogen 28H, Creatinine 1.31H, Sodium Level 140, Potassium Level 4.3, Chloride Level 106, Carbon Dioxide Level 29, Calcium Level 8.3L CBC/BMP Laboratory Tests 01/25/19 05:12 Red Blood Count 3.38 L, Mean Corpuscular Volume 98.2 H, Mean Corpuscular Hemoglo bin 31.7, Mean Corpuscular Hemoglobin Concent 32.2, Red Cell Distribution Width 13.3, Neutrophils (%) (Auto) 70.5 H, Lymphocytes (%) (Auto) 10.2 L, Monocytes (%) (Auto) 14.3 H, Eosinophils (%) (Auto) 3.8 H, Basophils (%) (Auto) 0.6, Neutrophils # (Auto) 3.8, Lymphocytes # (Auto) 0.5 L, Monocytes # (Auto) 0.8, Eosinophils # (Auto) 0.2, Basophils # (Auto) 0.0, Calcium Level 8.3 L ARTIE MONTGOMERY MD Jan 25, 2019 12:18
[2019-01-25] MEDS: NORCO, ANEXSIA 5/325MG TABLET (HYDROcodone/ACETAMINOPHEN) PO PRN ×2 (13:00→23:55)
[2019-01-25 16:00] VITALS: BP 140/66
[2019-01-25] MEDS: PERCOCET 5MG/325MG TAB PO PRN ×2 (17:23→21:59)
[2019-01-25 20:00] VITALS: BP 163/69
[2019-01-25] MEDS: VITAMIN D 1,000 INTERNATIONAL UNITS TABLET PO SCH (20:20)
[2019-01-25] MEDS: ROSUVASTATIN 10 MG TAB (CRESTOR) PO SCH (20:20)
[2019-01-25] MEDS: LACTOBACILLUS ACIDOPHILUS CAP (BACID) PO SCH (20:20)
[2019-01-25 23:59] VITALS: BP 140/62
[2019-01-26] MEDS: LEVALBUTEROL 1.25 MG/0.5 ML CONCENTRATE NEB NEB SCH ×2 (01:20→07:18)
[2019-01-26] MEDS: NORCO, ANEXSIA 5/325MG TABLET (HYDROcodone/ACETAMINOPHEN) PO PRN (03:10)
[2019-01-26 04:00] VITALS: BP 163/69
[2019-01-26] MEDS: PERCOCET 5MG/325MG TAB PO PRN ×2 (04:29→09:01)
[2019-01-26] MEDS: SLF 3 ML SYR IV SCH (05:04)
[2019-01-26 06:12] LABS: BASO % 0.3 % (0.0-1.0); EOS # 0.2 10^3/uL (0.0-0.50); EOS % 3.5 % (0.0-3.0); HEMATOCRIT 38.2 % (42.0-52.0); HEMOGLOBIN 12.6 g/dl (13.5-17.5); LYMPH # 0.5 10^3/uL (1.5-4.5); LYMPH % 7.1 % (24.0-44.0); MEAN CORPUSCULAR HEMOGLOBIN 32.5 pg (27.0-33.0); MEAN CORPUSCULAR VOLUME 98.5 fl (80.0-96.0); MONO # 0.7 10^3/uL (0.0-0.8); MONO % 10.2 % (0.0-5.0); NEUTROPHILS # 5.1 10^3/uL (1.8-7.7); NEUTROPHILS % 78.6 % (36.0-66.0); PLATELET COUNT, AUTOMATED 227 10^3/uL (150-450); RED BLOOD COUNT 3.88 10^6/uL (4.30-6.10); WHITE BLOOD COUNT 6.5 10^3/uL (4.0-10.0)
[2019-01-26 06:33] LABS: CALCIUM LEVEL 8.5 MG/DL (8.8-10.2); CREATININE FOR GFR 1.31 MG/DL (0.70-1.30); GLOMERULAR FILTRATION RATE 55.6 (>35); POTASSIUM SERUM 4.4 MEQ/L (3.5-5.1)
[2019-01-26 07:47] VITALS: BP 169/73
[2019-01-26] MEDS ORDERED: PERCOCET PO (08:25)
--- NOTE | 2019-01-26 08:39 | REP ---
PA and lateral chest: Comparison is 01/25/2090. The right pleural effusion right lower lobe atelectasis are unchanged. The lung chapin otherwise clear and unchanged. The small volume of subcutaneous emphysema along the right lateral chest wall continues to decrease. Cardiac size is normal. The natalie, mediastinum, skeletal structures are unchanged. The epidural catheter has been removed. Impression: The volume of subcutaneous emphysema along the right lateral chest wall continues to decrease. The epidural catheters been removed. No other interval change. Electronically Signed by Delfino Pendleton MD 01/26/2019 08:30 A
[2019-01-26] MEDS: LORATADINE 10 MG TAB PO SCH (08:59)
[2019-01-26] MEDS: HEPARIN SOD (PORCINE) 5000 UNITS/ML VIAL SC SCH (08:59)
[2019-01-26] MEDS: SPIRONOLACTONE 12.5MG PER 1/2 TABLET PO SCH (08:59)
[2019-01-26] MEDS: OLMESARTAN MEDOXOMIL 20 MG TAB (BENICAR) PO SCH (08:59)
[2019-01-26] MEDS: PANTOPRAZOLE 40MG TAB (PROTONIX) PO SCH (09:01)
[2019-01-26] MEDS: DOCUSATE SODIUM 100 MG CAP PO SCH (09:01)
[2019-01-26 09:02] VITALS: BP 169/73
[2019-01-26] MEDS: amLODIPine 5 MG TAB PO SCH (09:02)
[2019-01-26] MEDS: hydroCHLOROthiazide 12.5 MG CAPSULE PO SCH (09:02)
[2019-01-26] MEDS: ASPIRIN 81 MG ENTERIC TAB PO SCH (09:02)
[2019-01-26] MEDS: LACRILUBE (AKWA TEARS) OPHTH OINT 3.5 GM OU SCH (09:06)
[2019-01-26] MEDS: ONDANSETRON 4MG/2ML VIAL (J2405) IV PRN (11:26)
--- NOTE | 2019-01-26 14:21 | DS.PDOC ---
Discharge Summary General Date of Admission Jan 20, 2019 at 03:52 Date of Discharge 01/26/19 Specialist/Consultants Involve Dr. Cyr of thoracic surgery Discharge Summary PROCEDURES PERFORMED DURING STAY: Epidural placement by anesthesia ADMITTING/DISCHARGE DIAGNOSES: Right-sided pneumothorax Multiple right-sided rib fractures Hypertension Chronic kidney disease stage III History of peripheral artery disease COMPLICATIONS/CHIEF COMPLAINT: Right Pneumothorax, Multiple Rib Fx's. HISTORY OF PRESENT ILLNESS: . 84-year-old male presented to the ED following a mechanical fall at home. Patient stated that he was going up the stairs in his house with a laundry basket when he missed a step and fell down a flight of stairs landing on his right side. He denied any loss of consciousness, chest pain, but it is, dizzy, abdominal pain, or any nausea/vomiting prior to the fall. In the ER, a CT scan of the chest revealed slightly displaced right posterior 12th rib, comminuted se gmental fractures involving the posterior 11 rib, additional posterolateral slightly displaced fracture of the right 11th rib, nondisplaced posterior right 10th rib, slightly displaced right posterolateral 10th rib, minimally displaced posterolateral 9th rib, minimally displaced right posterior ninth rib, small right-sided pneumothorax 10-15 hemithoracic volume. The patient was admitted to the hospitalist service, and a consult was placed to the thoracic surgeon. During hospitalization, the patient's pneumothorax was managed conservatively and resolved on its own. The patient did have an epidural placed for pain control. He has been working with physical therapy and has been cleared. At this time, the patient's pain is well controlled. He has been cleared to be discharged by the thoracic surgery team. Have advised patient to follow-up with his primary care physician within 7 days, and with thoracic surgery on February 07. He has been counseled to return to the ER for any acute emergencies. DISCHARGE MEDICATIONS: Please see below. ALLERGIES: Please see below. PHYSICAL EXAMINATION ON DISCHARGE: VITAL SIGNS: Please see below. General Exam: Positive: Alert, Cooperative, No Acute Distress ENT Exam: Positive: Atraumatic, Mucous membr. moist/pink Neck Exam: Negative: JVD Chest Exam: Positive: Clear to auscultation, Normal air movement Heart Exam: Positive: Rate Normal, Normal S1, Normal S2 Abdomen Exam: Positive: Soft; Negative: Tenderness Extremity Exam: Negative: Tenderness, Swelling Psych Exam: Positive: Oriented x 3 LABORATORY DATA: Please see below. IMAGING: EXAM: CT Chest Without Contrast EXAM DATE/TIME: 01/20/2019 12:44 AM CLINICAL HISTORY: 84 years old, male; Injury or trauma; Fall; Initial encounter; Blunt trauma (contusions or hematomas) TECHNIQUE: Imaging protocol: Axial computed tomography images of the chest without intravenous contrast. Coronal and sagittal reformatted images were created and reviewed. Radiation optimization: All CT scans at this facility use at least one of these dose optimization techniques: automated exposure control; mA and/or kV adjustment per patient size (includes targeted exams where dose is matched to clinical indication); or iterative reconstruction. COMPARISON: CR Chest, 2 view PA, Lat 04/02/2017 8:12 AM Study limitations: Evaluation of mediastinal and hilar structures and vasculature, including injury is compromised without contrast. FINDINGS: HEART AND VASCULATURE: There is mild cardiac enlargement. There is some calcification at the aortic and mitral valves. There is extensive calcified coronary arterial atherosclerosis. No pericardial effusion. The thoracic aorta is non-aneurysmal. There is thoracic aortic atherosclerosis. The main pulmonary trunk is not overtly dilated. MEDIASTINUM: No mediastinal gas. The visualized thyroid gland is within normal limits. No mediastinal hematoma is seen. Small amount of fluid noted within the pericardial recesses. Small mediastinal lymph nodes are seen. No periesophageal gas or fluid. LUNGS: There is a small right-sided pneumothorax with gas noted anteriorly on this supine imaged CT. Pneumothorax is approximately 10-15% right hemithoracic volume. No pneumothorax on the left. Trace amount of pleural fluid is seen on the right. Hazy groundglass and reticular opacities are noted at the lung bases, right greater than left, likely secondary to atelectasis. No evidence of pulmonary parenchymal contusion, laceration or hemorrhage seen. No suspicious pulmonary parenchymal mass. No bronchiectasis or peribronchial thickening. UPPER ABDOMEN: Please refer to same day CT abdomen report for complete findings. MSK AND BODY WALL: There is soft tissue gas within the musculature of the right chest wall extending above and below the level of imaging. No chest wall hematoma is seen. Slightly displaced right posterior 12th rib fracture noted. Comminuted segmental fractures involving the posterior right 11th rib noted. There is an additional posterolateral slightly displaced fracture of the right 11th rib. Nondisplaced posterior right 10th rib fracture noted. Slightly displaced right posterolateral 10th rib fractures seen. Minimally displaced right posterolateral ninth rib fracture seen. Minimally displaced right posterior ninth rib fracture also noted. No additional acute osseous injuries within the thorax. Degenerative changes of the spine and bony thorax noted. IMPRESSION: Multiple acute right-sided rib fractures. Small right-sided pneumothorax. Small right pleural effusion. Bibasal and dependent atelectasis, right greater than left. EXAM: CT Abdomen and Pelvis Without Contrast EXAM DATE/TIME: 01/20/2019 12:44 AM CLINICAL HISTORY: 84 years old, male; Pain; Other: Trauma TECHNIQUE: Imaging protocol: Axial computed tomography images of the abdomen and pelvis without contrast. Coronal and sagittal reformatted images were created and reviewed. Radiation optimization: All CT scans at this facility use at least one of these dose optimization techniques: automated exposure control; mA and/or kV adjustment per patient size (includes targeted exams where dose is matched to clinical indication); or iterative reconstruction. COMPARISON: CT ABD/PEL W/IV ORAL CONTRAS 03/18/2017 12:15 PM Study limitations: Evaluation for post traumatic injury, mass, inflammatory change, including bowel wall/fold thickening, viscera, and vasculature, is suboptimal without contrast. Image quality is slightly degraded by positioning of the patient's arms along side of body wall, resulting in streak artifacts. FINDINGS: LUNG BASES: Please refer to same day CT chest report for complete findings. VASCULAR: No abdominal aortic aneurysm or retroperitoneal hematoma. There is aorto iliac, femoral and visceral arterial calcified atherosclerosis. There may be a right lower extremity bypass graft, incompletely assessed. PERITONEAL : No free air or free fluid. GI: No hiatal hernia. The stomach is mildly distended with ingested material, fluid and gas. The stomach is not sufficiently distended to evaluate wall thickening. No perigastric or periduodenal inflammatory stranding. Nonspecific fluid-filled loops of small bowel. No asymmetric small bowel dilation to suggest obstruction. There is no focal mesenteric inflammatory stranding. Small nonspecific mesenteric lymph nodes. No mesenteric or omental soft tissue hematoma seen. Scattered fecal material and gas within portions of the colon and rectum. Portions of the colon are distended up to 7 cm in diameter. This could be correlated for ileus or mild constipation. The sigmoid colon is partially rotated upon itself, along with the sigmoid mesentery but an obstructing volvulus is not seen. There is extensive diverticulosis but no evidence of acute diverticulitis. The appendix does not appear inflamed. HEPATOBILIARY, PANCREAS, SPLEEN: The liver is not enlarged. Evaluation of the hepatic parenchyma is limited by artifact and lack of contrast. No perihepatic hemorrhage is seen. 10 mm hypodense lesion noted inferiorly within the right hepatic lobe, difficult to further characterize by this exam but may represent a cyst as seen previously. No calcified gallstones. No pancreatic inflammation. Spleen not enlarged. No perisplenic hemorrhage. ADRENALS, KIDNEYS, BLADDER, RETROPERITONEAL: Adrenals within normal limits. No hydronephrosis. Mild nonspecific perinephric stranding. No perinephric hematoma. Bilateral renal lesions are noted. The lesions on the left are similar in size to the prior exam. A partially exophytic lesion posteriorly at the left mid pole is hyperdense and may represent a complex cyst. A 2.1 cm exophytic hyperdense right renal lesion noted at the midpole is slightly larger than on the prior exam. This may represent enlargement of a complex cyst. A 3.4 cm posterior exophytic renal lesion noted at the right midpole is also larger than on the prior exam. Consider nonemergent ultrasound for further assessment. No perivesical stranding or fluid. Mildly prominent prostate impressing into the base of the bladder. Clinical correlation and followup is advised. Prostate metallic artifacts are noted which may represent radiation, similar to the prior exam. MUSCULOSKELETAL: 6 cm non-inflamed midline supraumbilical fat containing hernia is noted. Small fat-containing inguinal hernias are seen. Degenerative changes of the spine and within the pelvis. There is soft tissue gas along the postero-lateral right upper abdominal wall. No acute abdominal or pelvic fracture or malalignment is seen. IMPRESSION: Soft tissue gas noted along the upper right postero-lateral thoracoabdominal body wall. No noncontrast evidence of acute injury within the abdomen/pelvis otherwise. No free air, free fluid or focal mesenteric inflammation. Nonspecific gastrointestinal findings as discussed above. Indeterminate right renal lesions, slightly larger than on the prior study. Consider nonemergent ultrasound for reevaluation. Portable chest, 06:56 a.m., single AP view with the patient semi upright: Comparison is 04/02/2017. There is a small right apical pneumothorax as an interval change with the pleural separation measuring approximately 1 cm. There is effacement of the left costophrenic angle suggestive of a small left pleural effusion as an interval change. The lung chapin otherwise clear. Cardiac size is upper normal. The natalie, mediastinum, skeletal structures are unremarkable. Impression: Small right pneumothorax. Small left pleural effusion. CT study of the cervical spine without contrast: History: Neck pain after a fall. Technique: Helical scanning is acquired and overlapping 2 mm high resolution axial images were generated and reviewed at bone and soft tissue window settings. Coronal and sagittal multiplanar re-formations images are generated. CT findings: There is no evidence of cervical spine element fracture. No skull base fracture is seen. Cervical vertebral body heights are preserved. Al ignment is normal. Facet joints are normally aligned bilaterally at each cervical level on multiplanar re-formations images. There is no evidence of intraspinal or paraspinal hematoma. No extra vertebral abnormality is seen. There are degenerative spondylosis changes in the cervical spine with osteoarthritic facet disease in the mid cervical spine bilaterally and degenerative disc changes most pronounced at C5-6. Facet joints are normally aligned. No fracture is seen. There is soft tissue emphysema tracking in the right neck soft tissues up from the chest. There are one or two bubbles of extradural air in the lower spinal canal as well associated with this. Vascular calcification is noted. Impression: No traumatic bony abnormality. Soft tissue extrathoracic emphysema noted. Degenerative spondylosis changes are noted. Otherwise negative study. PA and lateral chest: Comparison is 01/25/2090. The right pleural effusion right lower lobe atelectasis are unchanged. The lung chapin otherwise clear and unchanged. The small volume of subcutaneous emphysema along the right lateral chest wall continues to decrease. Cardiac size is normal. The natalie, mediastinum, skeletal structures are unchanged. The epidural catheter has been removed. Impression: The volume of subcutaneous emphysema along the right lateral chest wall continues to decrease. The epidural catheters been removed. No other interval change. PROGNOSIS: Fair ACTIVITY: As tolerated. DIET: 2 g low sodium diet DISCHARGE PLAN: DISPOSITION: Home, Self-Care. DISCHARGE INSTRUCTIONS: Have advised patient to follow-up with his primary care physician within 7 days, and with thoracic surgery on February 07. He has been counseled to return to the ER for any acute emergencies. DISCHARGE CONDITION: Stable. TIME SPENT ON DISCHARGE: Greater than 30 minutes. Vital Signs/I&Os Vital Signs Date Time Temp Pulse Resp B/P (MAP) Pulse Ox O2 Delivery O2 Flow Rate FiO2 01/26/19 09:31 18 100 01/26/19 09:02 84 169/73 01/26/19 07:47 97.3 01/23/19 08:05 I&O- Last 24 Hours up to 6 AM 01/26/19 06:00 Intake Total 40 ml Balance 40 ml Laboratory Data Labs 24H Laboratory Tests 2 01/26/19 05:52: Immature Granulocyte % (Auto) 0.3, White Blood Count 6.5, Red Blood Count 3.88L, Hemoglobin 12.6L, Hematocrit 38.2L, Mean Corpuscular Volume 98.5H, Mean Corpuscular Hemoglobin 32.5, Mean Corpuscular Hemoglobin Concent 33.0, Red Cell Distribution Width 13.1, Platelet Count 227, Neutrophils (%) (Auto) 78.6H, Lymphocytes (%) (Auto) 7.1L, Monocytes (%) (Auto) 10.2H, Eosinophils (%) (Auto) 3.5H, Basophils (%) (Auto) 0.3, Neutrophils # (Auto) 5.1, Lymphocytes # (Auto) 0.5L, Monocytes # (Auto) 0.7, Eosinophils # (Auto) 0.2, Basophils # (Auto) 0.0, Nucleated Red Blood Cells % (auto) 0.0, Anion Gap 6L, Glomerular Filtration Rate 55.6, Blood Urea Nitrogen 28H, Creatinine 1.31H, Sodium Level 136, Potassium Level 4.4, Chloride Level 103, Carbon Dioxide Level 27, Calcium Level 8.5L CBC/BMP Laboratory Tests 01/26/19 05:52 Red Blood Count 3.88 L, Mean Corpuscular Volume 98.5 H, Mean Corpuscular Hemoglobin 32.5, Mean Corpuscular Hemoglobin Concent 33.0, Red Cell Distribution Width 13.1, Neutrophils (%) (Auto) 78.6 H, Lymphocytes (%) (Auto) 7.1 L, Monocytes (%) (Auto) 10.2 H, Eosinophils (%) (Auto) 3.5 H, Basophils (%) (Auto) 0.3, Neutrophils # (Auto) 5.1, Lymphocytes # (Auto) 0.5 L, Monocytes # (Auto) 0.7, Eosinophils # (Auto) 0.2, Basophils # (Auto) 0.0, Calcium Level 8.5 L Discharge Medications Scheduled Aspirin (Aspirin EC) 81 Mg Tablet.dr, 81 MG PO DAILY, (Reported) Cholecalciferol (Vitamin D3) (Vitamin D3) 2,000 Unit Cap, 2,000 UNIT PO QHS, (Reported) L.acidoph/L.bulg/B.bif/S.therm (Bacid Caplet) 1 Each Tablet, 2 TAB PO QHS, (Reported) Loratadine (Loratadine) 10 Mg Tablet, 10 MG PO DAILY, (Reported) Olmesartan/Amlodipin/Hcthiazid (Tribenzor 40-5-25 mg Tablet) 1 Each Tablet, 1 TAB PO DAILY, (Reported) Rosuvastatin Calcium (Crestor) 5 Mg Tab, 5 MG PO QHS, (Reported) Spironolactone (Spironolactone) 25 Mg Tablet, 12.5 MG PO DAILY, (Reported) Scheduled PRN Lidocaine (Lidocaine) 5 % Pad, 1 PATCH TOP DAILY PRN for PAIN, (Reported) APPLY TO LOWER BACK Oxycodone/Acetaminophen (Oxycodone-Acetaminophen 5-325) 1 Each Tablet, 1 TAB PO Q4HP PRN for MODERATE PAIN (PS 5-7) 1-2 tabs q 4-6 hrs prn pain Allergies Coded Allergies: No Known Allergies (Verified , 01/09/03) ARTIE MONTGOMERY MD Jan 26, 2019 14:21
--- NOTE | 2019-01-27 12:12 | DSES ---
DATE OF ADMISSION: 01/20/2019 DATE OF DISCHARGE: 01/26/2019 DISCHARGE DIAGNOSES: 1. Multiple rib fractures - 9, 10, 11 and 12, posteriorly on the right after a traumatic fall. 2. Pneumothorax, resolved. 3. Hypertension. 4. History of prostate cancer. 5. Neck pain, chronic. 6. Renal failure. 7. Small Hemithorax secondary to rib fractures. HOSPITAL COURSE: The patient is an 84-year-old white male who tripped at the top of a flight of six stairs while he was carrying a laundry basket. He did not lose consciousness or feel faint prior to the fall, but rather tripped and fell down the stairs on his back and experienced immediate pain on the right posterior hemithorax with shortness of breath. CT done in the emergency room showed multiple rib fractures - 9, 10, 11 and 12, which were essentially nondisplaced and in good alignment. He had a very small pneumothorax, maybe 2% by volume in the upper extent of the hemithorax. He was experiencing excruciating pain and therefore he was admitted to the hospital where an epidural catheter was placed. His pneumothorax resolved spontaneously. The rest of his care was pain control and lung expansion therapy. He was eventually weaned from his epidural and converted to Percocet 1-2 every 4-6 hours as needed pain. During his stay secondary to his epidural, he became relatively hypotensive with blood pressures. His creatinine was found to be 1.31 from a known baseline of 1.07 to 1.1 in 2017. For one day, his creatinine was 1.17 and then he is being discharged with a creatinine of 1.31 today. This may be chronic renal insufficiency on top of acute secondary to the hypotension from the epidural. His discharge white count is 6.5 with hemoglobin and hematocrit of 12.6 and 38.2. Platelet count is 227. The remainder of his chemistries show normal electrolytes. His BUN and creatinine on discharge are 28 and 1.31. He has an appointment with Dr. Estrada, his primary care doctor, in two weeks. The main thrust of his rib fracture care is pain control. His chest x-ray shows some blunting of the right costophrenic angle which is no doubt a small hemithorax secondary to the rib fractures. It has remained stable. PLAN AND DISCUSSION: He is being discharged today on his home medications which include aspirin 81 mg daily, vitamin D 2000 units daily, Bacid 2 tablets at bedtime, loratadine 10 mg daily, Tribenzor 40-5-25 daily, Crestor 5 mg at bedtime, spironolactone 25 mg daily, along with Percocet 5/325 one to two every 4-6 hours as needed pain #45.
== END 2019-01-26 12:28 | disposition home or self-care (01) | DRG 184 ==
LOC: M ED 22:40 → M ED INP 01-20 03:52 → M ICU 01-20 04:38 → M PCU 01-23 08:10
PROVIDERS: ADMIT Internal Medicine; ATTEND Thoracic Surgery (Cardiothoracic Vascular Surgery)
PROC: 3E0S3BZ Introduction of Anesthetic Agent into Epidural Space, Percutaneous Approach (ICD-10-PCS; principal; 2019-01-20)
DX: S22.41XA Multiple fractures of ribs, right side, initial encounter for closed fracture (principal); S27.0XXA Traumatic pneumothorax, initial encounter; I12.9 Hypertensive chronic kidney disease with stage 1 through stage 4 chronic kidney disease, or unspecified chronic kidney disease; M54.2 Cervicalgia; W10.9XXA Fall (on) (from) unspecified stairs and steps, initial encounter; Y92.009 Unspecified place in unspecified non-institutional (private) residence as the place of occurrence of the external cause; S51.011A Laceration without foreign body of right elbow, initial encounter; Z79.82 Long term (current) use of aspirin; Z79.899 Other long term (current) drug therapy; E78.5 Hyperlipidemia, unspecified; E66.9 Obesity, unspecified; Z85.46 Personal history of malignant neoplasm of prostate; N18.3 Chronic kidney disease, stage 3 (moderate); I95.9 Hypotension, unspecified; K59.00 Constipation, unspecified

== ENCOUNTER → 2019-02-03 | Outpatient (CLI) | payer MEDICARE, OTHER ==
[~2019-02-03] MED LIST changes: +ASPI-161 PO; +BACITAB PO; +LORA-674 PO; +PERCOCET PO
--- NOTE | 2019-02-03 11:32 | REP ---
Clinical: Follow up infiltrate. Technique: PA and lateral. Comparison: 01/26/2019. Findings: Right basilar atelectasis and small right pleural effusion are again identified. Underlying chronic interstitial changes noted. The cardiac silhouette is stable and mild cardiomegaly cannot be excluded. Atherosclerotic changes to the aorta noted. Skeletal structures demonstrate degenerative changes. Impression: Right basilar atelectasis and small right pleural effusion again suggested. Electronically Signed by Domingo Rodriguez MD 02/03/2019 11:23 A
== END ==
LOC: M SMT 10:49
PROVIDERS: ATTEND Thoracic Surgery (Cardiothoracic Vascular Surgery)
DX: S22.41XA Multiple fractures of ribs, right side, initial encounter for closed fracture (principal); Y92.89 Other specified places as the place of occurrence of the external cause; Y93.9 Activity, unspecified

== ENCOUNTER → 2019-02-28 | Outpatient (CLI) | payer MEDICARE, OTHER ==
[2019-02-28 12:49] LABS: PLATELET COUNT, AUTOMATED 383 10^3/uL (150-450)
[2019-02-28 13:01] LABS: INR 1.04; PROTHROMBIN TIME 13.3 SECONDS (11.8-14.0)
[2019-02-28 13:02] LABS: PARTIAL THROMBOPLASTIN TIME 31.7 SECONDS (25.0-38.4)
--- NOTE | 2019-03-01 11:58 | REP ---
PA and lateral chest: Comparison is a 07/25/2018. The patient has known right rib fractures. There is no pneumothorax. There is a right pleural effusion that has increased in size. Left lung is clear. Cardiac size normal. Leslie, mediastinum, skeletal structures are unremarkable. Impression: The right pleural effusion has increased in size. There are right rib fractures, unchanged, seen to better advantage on the comparison chest CT dated 01/20/2019. Electronically Signed by Delfino Pendleton MD 02/28/2019 10:13 A
== END ==
LOC: M SMT 09:00
PROVIDERS: ATTEND Thoracic Surgery (Cardiothoracic Vascular Surgery)
DX: Z01.812 Encounter for preprocedural laboratory examination (principal); S27.1XXD Traumatic hemothorax, subsequent encounter; S22.41XD Multiple fractures of ribs, right side, subsequent encounter for fracture with routine healing; J90 Pleural effusion, not elsewhere classified; X58.XXXD Exposure to other specified factors, subsequent encounter

== ENCOUNTER 2019-03-02 12:17 | Emergency (ER) | payer MEDICARE, OTHER ==
[~2019-03-02] VITALS: Ht 167.6 cm; Wt 91.4 kg
[2019-03-02 13:05] LABS: BASO % 0.5 % (0.0-1.0); EOS # 0.1 10^3/uL (0.0-0.50); EOS % 1.1 % (0.0-3.0); HEMATOCRIT 36.8 % (42.0-52.0); HEMOGLOBIN 12.5 g/dl (13.5-17.5); LYMPH # 0.4 10^3/uL (1.5-4.5); LYMPH % 5.6 % (24.0-44.0); MEAN CORPUSCULAR VOLUME 94.1 fl (80.0-96.0); MONO # 0.6 10^3/uL (0.0-0.8); MONO % 8.4 % (0.0-5.0); NEUTROPHILS # 6.3 10^3/uL (1.8-7.7); NEUTROPHILS % 83.7 % (36.0-66.0); PLATELET COUNT, AUTOMATED 329 10^3/uL (150-450); RED BLOOD COUNT 3.91 10^6/uL (4.30-6.10); WHITE BLOOD COUNT 7.5 10^3/uL (4.0-10.0)
[2019-03-02 13:41] LABS: ALBUMIN 3.1 GM/DL (3.2-5.2); ALT/SGPT 21 U/L (12-78); BILIRUBIN,DIRECT < 0.1 MG/DL (0.0-0.2); BILIRUBIN,TOTAL 0.5 MG/DL (0.2-1.0); BLOOD UREA NITROGEN 21 MG/DL (7-18); CARBON DIOXIDE LEVEL 30 MEQ/L (21-32); CHLORIDE LEVEL 96 MEQ/L (98-107); CREATININE FOR GFR 1.17 MG/DL (0.70-1.30); GLOMERULAR FILTRATION RATE > 60.0 (>35); GLUCOSE, FASTING 106 MG/DL (70-100); LIPASE 171 U/L (73-393); POTASSIUM SERUM 4.6 MEQ/L (3.5-5.1); SODIUM LEVEL 129 MEQ/L (136-145); TOTAL PROTEIN 6.1 GM/DL (6.4-8.2)
[2019-03-02 15:40] VITALS: BP 147/65
--- NOTE | 2019-03-03 20:37 | ECGEPIP ---
[facility] - ED Test Date: 2019-03-02 Pat Name: JOSE TRUJILLO Department: Room: - Gender: Male [employer]: : 1935 Requested By: FATOU IRVIN Order Number: [id number] Reading MD: Dyan Rodas Measurements Intervals Porter Rate: 89 P: -16 IL: 216 QRS: 22 QRSD: 79 T: 21 QT: 346 QTc: 423 Interpretive Statements SINUS RHYTHM WITH FIRST DEGREE AV BLOCK WITH FREQUENT VENTRICULAR PREMATURE COMPLEXES MODERATE ST DEPRESSION Electronically Signed on 03-03-2019 20:37:43 EDT by Dyan Rodas
== END 2019-03-02 16:00 | disposition home or self-care (01) ==
LOC: M ED 12:17
DX: R19.7 Diarrhea, unspecified (principal); E87.1 Hypo-osmolality and hyponatremia; I44.0 Atrioventricular block, first degree; I10 Essential (primary) hypertension; Z79.82 Long term (current) use of aspirin; Z79.899 Other long term (current) drug therapy

== ENCOUNTER → 2019-03-02 | Outpatient (REF) | payer MEDICARE, OTHER | LOC: M LAB REF 13:24 | PROVIDERS: ATTEND Emergency Medicine | DX: R19.7 Diarrhea, unspecified (principal) ==

== ENCOUNTER → 2019-03-10 | Outpatient (CLI) | payer MEDICARE, OTHER ==
[2019-03-10 10:49] LABS: PH BODY FLUID 7.528 UNITS (NOT ESTABLISHED); SOURCE, BODY FLUID pH PLEURAL
--- NOTE | 2019-03-10 10:49 | REP ---
CHEST, TWO VIEWS: Two views of the chest performed and compared to a prior study of 02/28/2019, Patient has had a right thoracentesis. There is decreased amount of right pleural fluid compared to the prior study of 02/28/2019. There is no pneumothorax. There is mild right base atelectasis/infiltrate. The heart and mediastinum are unchanged. IMPRESSION: Decreased amount of right pleural fluid status post right thoracentesis. No pneumothorax. Mild right basilar atelectasis/infiltrate with small amount of residual right pleural fluid/thickening. Electronically Signed by Delfino Najera MD 03/10/2019 11:24 A
[2019-03-10 10:55] LABS: PLEURAL FL COLOR YELLOW (COLORLESS); SOURCE, BODY FLUID PLEURAL
[2019-03-10 10:56] LABS: APPEARANCE, BODY FLUID HAZY (CLEAR)
[2019-03-10 11:18] LABS: AMYLASE, BODY FLUID 56 U/L (NOT ESTABLISHED); LDH, BODY FLUID 130 U/L (NOT ESTABLISHED); SOURCE, BODY FLUID AMYLASE PLEURAL; SOURCE, BODY FLUID GLUCOSE PLEURAL; SOURCE, BODY FLUID LDH PLEURAL; SOURCE, BODY FLUID TOT PROTEIN PLEURAL; TOTAL PROTEIN, BODY FLUID 4.5 G/DL (NOT ESTABLISHED)
[2019-03-10 12:15] VITALS: BP 127/66
--- NOTE | 2019-03-10 16:29 | REP ---
ULTRASOUND-GUIDED RIGHT THORACENTESIS The procedure was performed under the direct supervision of Dr. najera. The risks and benefits of the procedure were explained to the patient and informed consent was obtained. The right pleural effusion was localized using ultrasound guidance. The skin was prepped and draped in a sterile fashion. 1% lidocaine was used as a local anesthetic. An 8-Romanian multi side-hole catheter was inserted using trocar technique. 1050 ml of geovanny colored fluid was withdrawn and sent to lab for analysis. The patient tolerated the procedure well and there were no immediate complications. After the appropriate amount of monitored convalescence the patient was discharged from the department. Reviewed by [employer] 03/10/2019 03:50 P Electronically Signed by Delfino Najera MD 03/10/2019 04:20 P
== END ==
LOC: M IRPRO 09:08
DX: S27.1XXD Traumatic hemothorax, subsequent encounter (principal); S22.41XD Multiple fractures of ribs, right side, subsequent encounter for fracture with routine healing

== ENCOUNTER → 2019-03-23 | Outpatient (CLI) | payer MEDICARE, OTHER ==
--- NOTE | 2019-03-23 16:05 | REP ---
PA and lateral chest: Comparison is 03/10/2019. The right pleural effusion has decreased in size. Lung chapin otherwise clear. There is no pneumothorax. There questionably fractures of the left eighth and ninth ribs laterally. This should be correlated with clinical point tenderness. Cardiac size is normal. The natalie, mediastinum, skeletal structures are otherwise unremarkable. Impression: The right pleural effusion continues to decrease in size. Questionable fractures of the right eighth and ninth ribs laterally. Correlate with clinical point tenderness. Electronically Signed by Delfino Pendleton MD 03/23/2019 03:57 P
== END ==
LOC: M SMT 14:48
PROVIDERS: ATTEND Thoracic Surgery (Cardiothoracic Vascular Surgery)
DX: S22.41XD Multiple fractures of ribs, right side, subsequent encounter for fracture with routine healing (principal); X58.XXXD Exposure to other specified factors, subsequent encounter

== ENCOUNTER → 2019-08-23 | Outpatient (CLI) | payer MEDICARE, OTHER ==
[2019-08-23 15:36] LABS: BASO % 0.4 % (0.0-1.0); EOS # 0.1 10^3/uL (0.0-0.5); EOS % 0.8 % (0.0-3.0); HEMATOCRIT 39.2 % (42.0-52.0); HEMOGLOBIN 12.9 g/dl (13.5-17.5); LYMPH # 0.7 10^3/uL (1.5-5.0); LYMPH % 10.3 % (24.0-44.0); MEAN CORPUSCULAR HEMOGLOBIN 31.8 pg (27.0-33.0); MEAN CORPUSCULAR HGB CONC 32.9 g/dl (32.0-36.5); MEAN CORPUSCULAR VOLUME 96.6 fl (80.0-96.0); MONO # 0.6 10^3/uL (0.0-0.8); MONO % 7.7 % (0.0-5.0); NEUTROPHILS # 5.8 10^3/uL (1.5-8.5); NEUTROPHILS % 80.4 % (36.0-66.0); PLATELET COUNT, AUTOMATED 223 10^3/uL (150-450); RED BLOOD COUNT 4.06 10^6/uL (4.30-6.10); WHITE BLOOD COUNT 7.2 10^3/uL (4.0-10.0)
[2019-08-23 16:09] LABS: ALBUMIN 3.6 GM/DL (3.2-5.2); BILIRUBIN,TOTAL 0.6 MG/DL (0.2-1.0); CALCIUM LEVEL 8.7 MG/DL (8.8-10.2); CHOLESTEROL RISK RATIO 2.216 (<5); CREATININE FOR GFR 1.35 MG/DL (0.70-1.30); GLOMERULAR FILTRATION RATE 53.7 (>35); POTASSIUM SERUM 4.3 MEQ/L (3.5-5.1); THYROID STIMULATING HORMONE 6.44 uIU/ML (0.358-3.740); TOTAL PROTEIN 6.6 GM/DL (6.4-8.2)
== END ==
LOC: M LAB 14:00
PROVIDERS: ATTEND Physician Assistant
DX: E78.5 Hyperlipidemia, unspecified (principal); I10 Essential (primary) hypertension